=== PATIENT | male | born 1940 | race Caucasian/White ===

== ENCOUNTER 2016-07-23 12:30 | Outpatient (RCR) | payer MEDICARE, BC ==
[~2016-07-23 12:30] MED LIST: ALLOPURINOL300 MG PO; AMARYL 2MG T2 MG/TAB PO; AMARYL4 MG PO; AMLOPIDINE; AMLOPIDINE PO; ANDROGEL1% TP; APRESOLINE PO; ASPI325T6 PO; ASPIR-LOW81 MG PO; ASPIRIN 81M81 MG/TA2 PO; ATENOLOL25 MG PO; ATENOLOL50 MG PO; BENAZEPRIL; BENAZEPRIL PO; BYSTOLIC10 MG PO; CATAPRES 0.1MG0.1 MG PO; CIALIS20 MG PO; CLOPIDOGREL; COUMADIN 6MG6 MG/TAB PO; COUMADIN4 MG PO; FLEXERIL10 MG PO; FLONASE NASAL S16 GM NS; FORTAMET500 MG PO; GENTAMICIN EYE D5 ML OP; HCTZ; HYTRIN 5MG C5 MG/CAP PO; HYZAAR 25 MG-101 TAB PO; K-DUR 10 MEQ T10 MEQ PO; LASIX 20MG TABL20 MG PO; LASIX 40MG TABL40 MG PO; LIPITOR20 MG PO; LODINE400 MG PO; LORTAB 5/500 501 TAB PO; METFORMIN ER500 MG PO; MULTIPLE VITAMI1 TAB PO; NIACOR500 MG PO; NITROSTAT0.4 MG/TAB SL; NORCO 325 MG-7.1 TAB PO; NORVASC 5MG5 MG/TAB PO; OCUVITE1 TA1 PO; PRILOSEC 20MG20 MG PO; ROXICODONE 55 MG/TAB PO; TEKTURNA PO; TERAZOSIN HCL PO; TESTOSTERONE TP; TYLENOL 325MG325 M1 PO; ULTRAM50 MG PO; ZEBETA 5MG5 MG PO; ZOCOR 20MG20 MG PO; ZYLOPRIM 300MG300 MG PO
== END 2016-09-29 | disposition still patient (30) ==
LOC: WSST
DX: J38.3 Other diseases of vocal cords (principal)
CPT/HCPCS: G9171-GN; G9172-GN

== ENCOUNTER 2017-07-08 07:05 | Day surgery (SDC) | payer MEDICARE, BC ==
[2017-07-08] VITALS (8 sets, daily range): BP systolic 116–141; BP diastolic 60–83; PULSE 62–76; TEMP 97.2–97.4
[~2017-07-08] VITALS: Ht 175.4 cm; Wt 88.2 kg
[~2017-07-08 07:05] MED LIST changes: -ANDROGEL1% TP; +ANDROGEL1.62% TOP; +MULTIPLE VITAMI1 TA5 PO; -MULTIPLE VITAMI1 TAB PO
[2017-07-08] MEDS ORDERED: NORVASC 5MG5 MG/TAB PO (07:34)
[2017-07-08 08:08] LABS: BASO % 0.7 % (0.0-2.0); EOS # 0.2 (0.0-0.7); EOS % 3.7 % (0-4.0); GRAN # 3.9 (1.4-6.5); GRAN % 70.9 % (42.2-75.2); HEMATOCRIT 43.8 % (42.0-52.0); HEMOGLOBIN 14.8 g/dl (13.5-18.0); LYMPH % 17.5 % (20.0-51.0); MEAN CELL VOLUME 81 fl (80.0-100.0); MEAN CORPUSCULAR HEMOGLOBIN 27 pg (27.0-31.0); MEAN CORPUSCULAR HGB CONC 34 g/dl (33.0-37.0); MEAN PLATELET VOLUME 9.9 fl (7.4-10.4); MONO # 0.4 (0.1-0.6); MONO % 6.8 % (1.7-9.3); PLATELET COUNT 102 K/mm3 (130-400); RED BLOOD COUNT 5.41 M/mm3 (4.20-5.60); WHITE BLOOD COUNT 5.4 K/mm3 (4.8-10.8)
[2017-07-08 08:09] LABS: INR 2.9 (0.8-3.0); PROTHROMBIN TIME 33.9 SECONDS (9.7-12.8)
[2017-07-08 08:13] LABS: CALCIUM 9.6 mg/dL (8.4-10.2); CREATININE, serum 1.16 mg/dL (0.66-1.25); POTASSIUM 3.9 mmol/L (3.4-5.0)
[2017-07-08] MEDS ORDERED: COREG 25MG25 MG/TAB PO (08:16)
[2017-07-08] MEDS ORDERED: DECADRON OPHTH D5 ML OT (08:18)
[2017-07-08] MEDS ORDERED: COZAAR100 MG PO (08:20)
[2017-07-08] MEDS ORDERED: GLUCOPHAGE XR500 M1 PO (08:21)
[2017-07-08] MEDS ORDERED: SINGULAIR 110 MG/TAB PO (08:22)
[2017-07-08] MEDS ORDERED: FLOMAX 0.40.4 MG/CAP PO (08:29)
[2017-07-08] MEDS ORDERED: THEO-24400 MG PO (08:32)
[2017-07-08] MEDS ORDERED: VITAMIN D31000 I1 PO (08:33)
[2017-07-08] MEDS ORDERED: THE MEDICINE S200 M2 PO (08:34)
== END 2017-07-08 15:26 | disposition home or self-care (01) ==
LOC: COL.CAR 07:05
PROVIDERS: Internal Medicine Cardiovascular Disease
DX: I48.91 Unspecified atrial fibrillation (principal); I25.10 Atherosclerotic heart disease of native coronary artery without angina pectoris; M19.90 Unspecified osteoarthritis, unspecified site; K21.9 Gastro-esophageal reflux disease without esophagitis; I12.9 Hypertensive chronic kidney disease with stage 1 through stage 4 chronic kidney disease, or unspecified chronic kidney disease; E11.22 Type 2 diabetes mellitus with diabetic chronic kidney disease; N18.9 Chronic kidney disease, unspecified; G47.33 Obstructive sleep apnea (adult) (pediatric); Z95.818 Presence of other cardiac implants and grafts; Z95.1 Presence of aortocoronary bypass graft; Z79.84 Long term (current) use of oral hypoglycemic drugs; Z79.01 Long term (current) use of anticoagulants; Z90.49 Acquired absence of other specified parts of digestive tract; Z87.891 Personal history of nicotine dependence; Z85.038 Personal history of other malignant neoplasm of large intestine; Z86.73 Personal history of transient ischemic attack (TIA), and cerebral infarction without residual deficits; Z82.49 Family history of ischemic heart disease and other diseases of the circulatory system; Z83.3 Family history of diabetes mellitus; Z82.3 Family history of stroke
CPT/HCPCS: G9654; J2704; J7030

== ENCOUNTER 2018-01-24 05:58 | Day surgery (SDC) | payer MEDICARE, BC ==
[~2018-01-24] VITALS: Ht 175.3 cm; Wt 93.0 kg
[~2018-01-24 05:58] MED LIST changes: +COREG 25MG25 MG/TAB PO; +COZAAR100 MG PO; +DECADRON OPHTH D5 ML OT; +FLOMAX 0.40.4 MG/CAP PO; +GLUCOPHAGE XR500 M1 PO; +LIPITOR 10MG10 MG PO; -LIPITOR20 MG PO; +SINGULAIR 110 MG/TAB PO; +THE MEDICINE S200 M2 PO; +THEO-24400 MG PO; +VITAMIN D31000 I1 PO
[2018-01-24 06:18] LABS: HEMATOCRIT 41.7 % (42.0-52.0); HEMOGLOBIN 13.8 g/dl (13.5-18.0); MEAN CELL VOLUME 79 fl (80.0-100.0); MEAN CORPUSCULAR HEMOGLOBIN 26 pg (27.0-31.0); MEAN CORPUSCULAR HGB CONC 33 g/dl (33.0-37.0); MEAN PLATELET VOLUME 9.4 fl (7.4-10.4); PLATELET COUNT 123 K/mm3 (130-400); RED BLOOD COUNT 5.27 M/mm3 (4.20-5.60)
[2018-01-24 06:29] LABS: CALCIUM 9.7 mg/dL (8.4-10.2); CREATININE, serum 1.19 mg/dL (0.66-1.25); POTASSIUM 3.8 mmol/L (3.4-5.0)
[2018-01-24 06:32] LABS: PROTHROMBIN TIME 23.1 SECONDS (9.7-12.8)
[2018-01-24 07:07] VITALS: BP 173/82; PULSE 69; TEMP 98.4
[2018-01-24] MEDS ORDERED: TYLENOL 325MG325 MG PO (07:10)
[2018-01-24] MEDS ORDERED: HYTRIN 5MG C5 MG/CAP PO (07:27)
[2018-01-24 08:35] VITALS: BP 128/78; PULSE 70
[2018-01-24 09:00] VITALS: BP 165/86; PULSE 64
[2018-01-24 09:20] VITALS: BP 159/103; PULSE 65
[2018-01-24 09:40] VITALS: BP 183/85; PULSE 67
== END 2018-01-24 10:11 | disposition home or self-care (01) ==
LOC: COL.CAR 05:58
PROVIDERS: Internal Medicine Cardiovascular Disease
DX: I48.0 Paroxysmal atrial fibrillation (principal); I48.91 Unspecified atrial fibrillation; I25.10 Atherosclerotic heart disease of native coronary artery without angina pectoris; E78.5 Hyperlipidemia, unspecified; I10 Essential (primary) hypertension; R01.1 Cardiac murmur, unspecified; Z86.73 Personal history of transient ischemic attack (TIA), and cerebral infarction without residual deficits; Z95.1 Presence of aortocoronary bypass graft; E11.22 Type 2 diabetes mellitus with diabetic chronic kidney disease; I12.9 Hypertensive chronic kidney disease with stage 1 through stage 4 chronic kidney disease, or unspecified chronic kidney disease; N18.9 Chronic kidney disease, unspecified; Z79.84 Long term (current) use of oral hypoglycemic drugs; G47.33 Obstructive sleep apnea (adult) (pediatric); Z85.038 Personal history of other malignant neoplasm of large intestine; Z79.899 Other long term (current) drug therapy; Z79.01 Long term (current) use of anticoagulants; I08.1 Rheumatic disorders of both mitral and tricuspid valves; Z87.891 Personal history of nicotine dependence
CPT/HCPCS: J2704

== ENCOUNTER 2018-03-03 08:22 | Day surgery (SDC) | payer MEDICARE, BC ==
[~2018-03-03] VITALS: Ht 175.4 cm; Wt 94.0 kg
[~2018-03-03 08:22] MED LIST changes: +TYLENOL 325MG325 MG PO
[2018-03-03] MEDS ORDERED: COUMADIN4 MG PO (08:41)
[2018-03-03 08:51] VITALS: BP 166/86; PULSE 74; TEMP 97.8
[2018-03-03 08:54] LABS: HEMATOCRIT 41.5 % (42.0-52.0); HEMOGLOBIN 13.9 g/dl (13.5-18.0); MEAN CELL VOLUME 79 fl (80.0-100.0); MEAN CORPUSCULAR HEMOGLOBIN 26 pg (27.0-31.0); MEAN CORPUSCULAR HGB CONC 34 g/dl (33.0-37.0); MEAN PLATELET VOLUME 9.4 fl (7.4-10.4); PLATELET COUNT 101 K/mm3 (130-400); RED BLOOD COUNT 5.26 M/mm3 (4.20-5.60); REDCELL DISTRIBUTION WIDTH-CV 14.9 % (11.5-14.5)
[2018-03-03 08:57] LABS: INR 2.8 (0.8-3.0); PROTHROMBIN TIME 32.3 SECONDS (9.7-12.8)
[2018-03-03 09:00] LABS: CALCIUM 9.4 mg/dL (8.4-10.2); CREATININE, serum 1.23 mg/dL (0.66-1.25)
[2018-03-03] MEDS ORDERED: PACERONE200 MG PO (10:53)
[2018-03-03 11:10] VITALS: BP 148/93; PULSE 64
[2018-03-03 11:25] VITALS: BP 148/71; PULSE 74
[2018-03-03 11:40] VITALS: BP 143/70; PULSE 70
[2018-03-03 11:55] VITALS: BP 156/82; PULSE 72; TEMP 97.6
== END 2018-03-03 12:28 | disposition home or self-care (01) ==
LOC: COL.CAR 08:22
PROVIDERS: Internal Medicine Cardiovascular Disease
DX: I48.91 Unspecified atrial fibrillation (principal); E10.22 Type 1 diabetes mellitus with diabetic chronic kidney disease; I12.9 Hypertensive chronic kidney disease with stage 1 through stage 4 chronic kidney disease, or unspecified chronic kidney disease; N18.9 Chronic kidney disease, unspecified; Z87.891 Personal history of nicotine dependence; K21.9 Gastro-esophageal reflux disease without esophagitis; E10.9 Type 1 diabetes mellitus without complications; Z79.84 Long term (current) use of oral hypoglycemic drugs; Z86.73 Personal history of transient ischemic attack (TIA), and cerebral infarction without residual deficits; I25.10 Atherosclerotic heart disease of native coronary artery without angina pectoris; E78.5 Hyperlipidemia, unspecified; R01.1 Cardiac murmur, unspecified; Z95.1 Presence of aortocoronary bypass graft; G47.33 Obstructive sleep apnea (adult) (pediatric); I34.0 Nonrheumatic mitral (valve) insufficiency; Z82.49 Family history of ischemic heart disease and other diseases of the circulatory system; Z82.3 Family history of stroke; N52.1 Erectile dysfunction due to diseases classified elsewhere; I77.1 Stricture of artery; Z79.01 Long term (current) use of anticoagulants
CPT/HCPCS: J2704; J7030

== ENCOUNTER 2018-06-29 07:31 | Emergency (ER) | payer MEDICARE, BC ==
[~2018-06-29] VITALS: Ht 175.3 cm; Wt 97.7 kg
[~2018-06-29 07:31] MED LIST changes: +PACERONE200 MG PO
[2018-06-29 07:34] VITALS: TEMP 97.8
[2018-06-29 08:07] LABS: BASO % 0.5 % (0.0-2.0); EOS # 0.2 (0.0-0.7); EOS % 2.8 % (0-4.0); GRAN # 4.5 (1.4-6.5); GRAN % 78.3 % (42.2-75.2); LYMPH # 0.6 (1.2-3.4); LYMPH % 10.4 % (20.0-51.0); MEAN CELL VOLUME 85 fl (80.0-100.0); MEAN CORPUSCULAR HEMOGLOBIN 28 pg (27.0-31.0); MEAN CORPUSCULAR HGB CONC 33 g/dl (33.0-37.0); MEAN PLATELET VOLUME 8.8 fl (7.4-10.4); MONO # 0.4 (0.1-0.6); MONO % 7.1 % (1.7-9.3); PLATELET COUNT 152 K/mm3 (130-400); RED BLOOD COUNT 3.98 M/mm3 (4.20-5.60); REDCELL DISTRIBUTION WIDTH-CV 15.5 % (11.5-14.5)
[2018-06-29 08:12] LABS: HEMATOCRIT 33.8 % (42.0-52.0)
[2018-06-29 08:19] LABS: ALBUMIN 3.4 gm/dL (3.5-5.0); C-REACTIVE PROTEIN 4.5 mg/dL (0.0-0.9); CALCIUM 8.6 mg/dL (8.4-10.2); CREATININE, serum 1.45 mg/dL (0.66-1.25); TOTAL PROTEIN 6.6 gm/dL (6.4-8.2)
[2018-06-29 08:20] LABS: PROTHROMBIN TIME 34.1 SECONDS (9.7-12.8)
[2018-06-29 08:34] LABS: ERYTHROCYTE SEDIMENTATION RATE 52 mm/hr (0-30)
[2018-06-29] MEDS ORDERED: CEPHALEXIN500 M1 PO (08:56)
[2018-06-29] MEDS ORDERED: DOXYCYCLINE 10100 MG PO (08:56)
[2018-06-29 09:31] VITALS: BP 178/98; PULSE 75
== END 2018-06-29 09:32 | disposition home or self-care (01) ==
LOC: COL.ER 07:31
PROVIDERS: Emergency Medicine
DX: L03.116 Cellulitis of left lower limb (principal); I48.91 Unspecified atrial fibrillation; I25.10 Atherosclerotic heart disease of native coronary artery without angina pectoris; E11.9 Type 2 diabetes mellitus without complications; Z86.73 Personal history of transient ischemic attack (TIA), and cerebral infarction without residual deficits; Z98.890 Other specified postprocedural states; Z79.84 Long term (current) use of oral hypoglycemic drugs

== ENCOUNTER 2019-03-12 07:43 | Emergency (ER) | payer MEDICARE, BC ==
[~2019-03-12] VITALS: Ht 167.6 cm; Wt 85.9 kg
[~2019-03-12 07:43] MED LIST changes: +AMOXICILLIN 8751 TAB PO; +APRESOLINE 25MG25 MG PO; +BENICAR40 MG PO; +BUMEX2 MG PO; +CEPHALEXIN500 M1 PO; +COREG12.5 MG PO; +COUMADIN 1MG1 MG/TAB PO; +COUMADIN 22.5 MG/TAB PO; +DOXYCYCLINE 10100 MG PO; +GLUCOPHAGE500 MG/TAB PO; +NORVASC 10MG10 MG PO; +PRIL40 PO; -PRILOSEC 20MG20 MG PO; +REFRESH TEARS 330 ML OP; +RESTASIS 60VL OP
[2019-03-12] MEDS ORDERED: PROAIR HFA0.09 MG/AC INH (07:56)
[2019-03-12] MEDS ORDERED: NORVASC 10MG10 MG PO (07:57)
[2019-03-12] MEDS ORDERED: CORDARONE200 MG/TAB PO (07:57)
[2019-03-12] MEDS ORDERED: LIPITOR 10MG10 MG PO (07:58)
[2019-03-12] MEDS ORDERED: ASPIRIN 81M81 MG/TA2 PO (07:58)
[2019-03-12] MEDS ORDERED: COUMADIN 1MG1 MG/TAB PO (08:05)
[2019-03-12 08:37] LABS: BASO % 0.6 % (0.0-2.0); EOS # 0.1 (0.0-0.7); GRAN # 4.3 (1.4-6.5); GRAN % 80.6 % (42.2-75.2); HEMATOCRIT 37.9 % (42.0-52.0); HEMOGLOBIN 11.9 g/dl (13.5-18.0); LYMPH # 0.4 (1.2-3.4); LYMPH % 8.2 % (20.0-51.0); MEAN CELL VOLUME 83 fl (80.0-100.0); MEAN CORPUSCULAR HEMOGLOBIN 26 pg (27.0-31.0); MEAN CORPUSCULAR HGB CONC 31 g/dl (33.0-37.0); MEAN PLATELET VOLUME 9.9 fl (7.4-10.4); MONO # 0.5 (0.1-0.6); MONO % 8.4 % (1.7-9.3); PLATELET COUNT 107 K/mm3 (130-400); RED BLOOD COUNT 4.58 M/mm3 (4.20-5.60); REDCELL DISTRIBUTION WIDTH-CV 15.6 % (11.5-14.5)
[2019-03-12 08:49] LABS: ALBUMIN 3.6 gm/dL (3.5-5.0); BILIRUBIN,TOTAL 0.6 mg/dL (0.0-1.0); C-REACTIVE PROTEIN 6.5 mg/dL (0.0-0.9); CALCIUM 9.1 mg/dL (8.4-10.2); CREATININE, serum 2.05 (0.66-1.25); POTASSIUM 3.8 mmol/L (3.4-5.0); TOTAL PROTEIN 6.7 gm/dL (6.4-8.2); URIC ACID 11.5 mg/dL (3.5-8.5)
[2019-03-12 09:05] LABS: INR 2.4 (0.8-3.0)
[2019-03-12] MEDS ORDERED: PREDNISONE20 MG PO (10:20)
[2019-03-12 12:25] LABS: TROPONIN-I 0.014 ng/mL (0.000-0.035)
[2019-03-12 12:48] VITALS: BP 130/60; PULSE 55; TEMP 98.6
[2019-03-12] MEDS ORDERED: NORCO 325 MG-51 TAB PO (12:54)
== END 2019-03-12 12:53 | disposition home or self-care (01) ==
LOC: COL.ER 07:43
PROVIDERS: Nurse Practitioner Primary Care
DX: M10.9 Gout, unspecified (principal); I48.91 Unspecified atrial fibrillation; E11.22 Type 2 diabetes mellitus with diabetic chronic kidney disease; I12.9 Hypertensive chronic kidney disease with stage 1 through stage 4 chronic kidney disease, or unspecified chronic kidney disease; N18.3 Chronic kidney disease, stage 3 (moderate); Z79.82 Long term (current) use of aspirin; Z79.01 Long term (current) use of anticoagulants; Z87.891 Personal history of nicotine dependence; Z95.5 Presence of coronary angioplasty implant and graft
CPT/HCPCS: C9113; J2270; J7512

== ENCOUNTER → 2019-04-27 | Outpatient (CLI) | payer MEDICARE, BC ==
[~2019-04-27] MED LIST changes: +CORDARONE200 MG/TAB PO; +NORCO 325 MG-51 TAB PO; +PREDNISONE20 MG PO; +PROAIR HFA0.09 MG/AC INH
== END ==
LOC: COL.RAD 13:42
DX: I65.29 Occlusion and stenosis of unspecified carotid artery (principal); I63.9 Cerebral infarction, unspecified

== ENCOUNTER 2019-08-02 20:08 | Emergency (ER) | payer MEDICARE, BC ==
[~2019-08-02] VITALS: Ht 172.7 cm; Wt 94.1 kg
[2019-08-02 20:10] VITALS: TEMP 96.9
[2019-08-02 20:58] LABS: BASO % 0.6 % (0.0-2.0); EOS % 0.2 % (0-4.0); GRAN # 4.6 (1.4-6.5); GRAN % 92.8 % (42.2-75.2); HEMOGLOBIN 10.3 g/dl (13.5-18.0); LYMPH # 0.2 (1.2-3.4); LYMPH % 3.8 % (20.0-51.0); MEAN CELL VOLUME 85 fl (80.0-100.0); MEAN CORPUSCULAR HEMOGLOBIN 26 pg (27.0-31.0); MEAN CORPUSCULAR HGB CONC 31 g/dl (33.0-37.0); MEAN PLATELET VOLUME 10.1 fl (7.4-10.4); MONO # 0.1 (0.1-0.6); MONO % 2.2 % (1.7-9.3); PLATELET COUNT 130 K/mm3 (130-400); RED BLOOD COUNT 3.91 M/mm3 (4.20-5.60); REDCELL DISTRIBUTION WIDTH-CV 16.1 % (11.5-14.5)
[2019-08-02 21:10] LABS: HEMATOCRIT 33.1 % (42.0-52.0)
[2019-08-02 21:13] LABS: ALANINE AMINOTRANSFERASE 23 U/L (21-72); ALBUMIN 4.2 gm/dL (3.5-5.0); ALKALINE PHOSPHATASE 81 U/L (50-136); ANION GAP 14 mmol/L (7-16); AST,SGOT 22 U/L (15-37); BLOOD UREA NITROGEN 66 mg/dL (9-20); CALCIUM 9.4 mg/dL (8.4-10.2); CARBON DIOXIDE 24 mmol/L (22-30); CHLORIDE 100 mmol/L (98-107); CREATININE, serum 3.33 (0.66-1.25); GLUCOSE 187 mg/dL (74-106); LIPASE 37 U/L (23-300); POTASSIUM 4.5 mmol/L (3.4-5.0); SODIUM 138 mmol/L (137-145); TOTAL PROTEIN 7.3 gm/dL (6.4-8.2)
[2019-08-02] MEDS ORDERED: ZYLOPRIM 300MG300 MG PO (21:23)
[2019-08-02] MEDS ORDERED: SYNTHROID0.05 MG/TA PO (21:25)
[2019-08-02] MEDS ORDERED: PRINIVIL5 MG PO (21:28)
[2019-08-02] MEDS ORDERED: MIRALAX PA17 GM/Dose PO (21:33)
[2019-08-02 21:34] LABS: TROPONIN-I < 0.012 ng/mL (0.000-0.035)
[2019-08-02 22:41] LABS: INR 1.7 (0.8-3.0); PROTHROMBIN TIME 20.7 SECONDS (9.7-12.8)
[2019-08-03 00:47] LABS: MUCOUS Present /lpf; PH 5 (5-8); SQUAMOUS EPITHELIAL 0-2 /hpf; URINE APPEARANCE Clear; URINE BACTERIA None Seen /hpf; URINE BILIRUBIN Negative (NEGATIVE); URINE BLOOD Negative (NEGATIVE); URINE COLOR Yellow; URINE GLUCOSE Negative (NEGATIVE); URINE KETONE Negative (NEGATIVE); URINE LEUKOCYTE ESTERASE Negative (NEGATIVE); URINE NITRATE Negative (NEGATIVE); URINE PROTEIN(semi-quant) 2+ (NEGATIVE); URINE RBC 0-2 /hpf; URINE UROBILINOGEN Negative (NEGATIVE); URINE WBC None Seen /hpf
[2019-08-03 01:14] LABS: COLLECTION METHOD CLEAN CATCH
[2019-08-03 01:45] VITALS: BP 163/61; PULSE 59
== END 2019-08-03 01:47 | disposition home or self-care (01) ==
LOC: COL.ER 20:08
PROVIDERS: Emergency Medicine
DX: R11.2 Nausea with vomiting, unspecified (principal); E11.22 Type 2 diabetes mellitus with diabetic chronic kidney disease; I12.9 Hypertensive chronic kidney disease with stage 1 through stage 4 chronic kidney disease, or unspecified chronic kidney disease; N18.9 Chronic kidney disease, unspecified; I48.91 Unspecified atrial fibrillation; M10.9 Gout, unspecified; Z85.038 Personal history of other malignant neoplasm of large intestine; Z90.89 Acquired absence of other organs; Z87.891 Personal history of nicotine dependence; Z79.01 Long term (current) use of anticoagulants; Z79.82 Long term (current) use of aspirin; Z79.51 Long term (current) use of inhaled steroids
CPT/HCPCS: J7030

== ENCOUNTER → 2019-08-21 | Outpatient (CLI) | payer MEDICARE, BC ==
[~2019-08-21] MED LIST changes: +APRESOLINE50 MG PO; +CELEBREX 200MG200 MG PO; +COLCRYS0.6 MG PO; +MIRALAX PA17 GM/Dose PO; +PRINIVIL5 MG PO; +SYNTHROID0.05 MG/TA PO; +ULTRAM 50MG TAB50 MG PO
== END ==
LOC: COL.VAS 11:12
DX: M79.89 Other specified soft tissue disorders (principal); Z96.651 Presence of right artificial knee joint

== ENCOUNTER 2019-09-02 08:35 | Emergency (ER) | payer MEDICARE, BC ==
[~2019-09-02] VITALS: Ht 170.2 cm; Wt 105.9 kg
[2019-09-02 08:39] VITALS: TEMP 97.8
[2019-09-02 09:19] LABS: BASO % 0.5 % (0.0-2.0); EOS # 0.1 (0.0-0.7); EOS % 1.9 % (0-4.0); GRAN % 87.3 % (42.2-75.2); LYMPH # 0.3 (1.2-3.4); LYMPH % 4.8 % (20.0-51.0); MEAN CELL VOLUME 83 fl (80.0-100.0); MEAN CORPUSCULAR HGB CONC 29 g/dl (33.0-37.0); MEAN PLATELET VOLUME 10.4 fl (7.4-10.4); MONO # 0.3 (0.1-0.6); MONO % 5.1 % (1.7-9.3); PLATELET COUNT 156 K/mm3 (130-400); RED BLOOD COUNT 3.37 M/mm3 (4.20-5.60); REDCELL DISTRIBUTION WIDTH-CV 16.8 % (11.5-14.5)
[2019-09-02 09:24] LABS: HEMATOCRIT 27.9 % (42.0-52.0); HEMOGLOBIN 8.2 g/dl (13.5-18.0); MEAN CORPUSCULAR HEMOGLOBIN 24 pg (27.0-31.0)
[2019-09-02 09:42] LABS: INR 9.8 (0.8-3.0); PROTHROMBIN TIME 123.1 SECONDS (9.7-12.8)
[2019-09-02 10:24] VITALS: BP 167/97; PULSE 65
== END 2019-09-02 10:27 | disposition home or self-care (01) ==
LOC: COL.ER 08:35
PROVIDERS: Nurse Practitioner
DX: R04.0 Epistaxis (principal); R79.1 Abnormal coagulation profile; Z98.890 Other specified postprocedural states; Z87.891 Personal history of nicotine dependence; Z85.038 Personal history of other malignant neoplasm of large intestine; Z79.82 Long term (current) use of aspirin; Z79.51 Long term (current) use of inhaled steroids; Z79.01 Long term (current) use of anticoagulants

== ENCOUNTER 2020-07-26 07:25 | Day surgery (SDC) | payer MEDICARE, BC ==
[~2020-07-26] VITALS: Ht 170.2 cm; Wt 92.2 kg
[~2020-07-26 07:25] MED LIST changes: +COUMADIN 2MG2 MG/TAB PO
[2020-07-26] MEDS ORDERED: NORVASC 5MG5 MG/TAB PO (08:39)
[2020-07-26] MEDS ORDERED: BUMEX2 MG PO (08:41)
[2020-07-26] MEDS ORDERED: COLCRYS0.6 MG PO (08:48)
[2020-07-26] MEDS ORDERED: SYNTHROID0.1 MG/TAB PO (08:50)
[2020-07-26] MEDS ORDERED: ZESTRIL 5MG5 MG PO (08:51)
[2020-07-26] MEDS ORDERED: COUMADIN 2MG2 MG/TAB PO (08:56)
[2020-07-26 09:03] LABS: INR 1.8 (0.8-3.0)
[2020-07-26 09:03] LABS: BASO % 0.6 % (0.0-2.0); EOS # 0.2 (0.0-0.7); EOS % 2.8 % (0-4.0); GRAN # 5.1 (1.4-6.5); HEMOGLOBIN 11.2 g/dl (13.5-18.0); LYMPH # 0.7 (1.2-3.4); LYMPH % 10.3 % (20.0-51.0); MEAN CELL VOLUME 87 fl (80.0-100.0); MEAN CORPUSCULAR HEMOGLOBIN 27 pg (27.0-31.0); MEAN CORPUSCULAR HGB CONC 31 g/dl (33.0-37.0); MEAN PLATELET VOLUME 11.5 fl (7.4-10.4); MONO # 0.5 (0.1-0.6); MONO % 7.7 % (1.7-9.3); PLATELET COUNT 122 K/mm3 (130-400); RED BLOOD COUNT 4.13 M/mm3 (4.20-5.60); REDCELL DISTRIBUTION WIDTH-CV 16.3 % (11.5-14.5)
[2020-07-26 09:05] LABS: PARTIAL THROMBOPLASTIN TIME 34.9 SECONDS (26.0-37.0)
[2020-07-26 09:08] LABS: CREATININE, serum 2.06 (0.66-1.25); MAGNESIUM 2.2 mg/dL (1.6-2.3); POTASSIUM 4.1 mmol/L (3.4-5.0)
[2020-07-26 09:20] VITALS: BP 140/54; PULSE 46
[2020-07-26 09:30] VITALS: BP 141/58; PULSE 48
[2020-07-26 09:32] LABS: HEMATOCRIT 36.1 % (42.0-52.0)
[2020-07-26 09:38] LABS: THYROID STIMULATING HORMONE 7.14 uIU/mL (0.465-4.680)
--- NOTE | 2020-07-26 09:40 | NUR ---
Report from Regan Muir.Pt observed awake and alert.Dr Dominguez in to visit pt.
[2020-07-26] MEDS ORDERED: NORVASC 10MG10 MG PO (09:44)
[2020-07-26 09:45] VITALS: BP 154/59; PULSE 51
[2020-07-26] MEDS ORDERED: COREG 6.256.25 MG/TA PO (09:45)
[2020-07-26 10:00] VITALS: BP 166/66; PULSE 50
--- NOTE | 2020-07-26 10:28 | NUR ---
Discharge instructions given to pt.Pt verbalizes understanding.INT removed,catheter tip intact.Pt escorted out via wheelchair by this nurse.
== END 2020-07-26 10:42 | disposition home or self-care (01) ==
LOC: COL.CAR 07:25
PROVIDERS: Internal Medicine Cardiovascular Disease
DX: I48.0 Paroxysmal atrial fibrillation (principal); I25.10 Atherosclerotic heart disease of native coronary artery without angina pectoris; E11.22 Type 2 diabetes mellitus with diabetic chronic kidney disease; I12.9 Hypertensive chronic kidney disease with stage 1 through stage 4 chronic kidney disease, or unspecified chronic kidney disease; N18.4 Chronic kidney disease, stage 4 (severe); K21.9 Gastro-esophageal reflux disease without esophagitis; E78.5 Hyperlipidemia, unspecified; G47.33 Obstructive sleep apnea (adult) (pediatric); D63.1 Anemia in chronic kidney disease; M19.90 Unspecified osteoarthritis, unspecified site; Z95.1 Presence of aortocoronary bypass graft; Z88.3 Allergy status to other anti-infective agents; Z88.6 Allergy status to analgesic agent; Z88.8 Allergy status to other drugs, medicaments and biological substances; Z90.49 Acquired absence of other specified parts of digestive tract; Z87.891 Personal history of nicotine dependence; Z85.038 Personal history of other malignant neoplasm of large intestine; Z86.73 Personal history of transient ischemic attack (TIA), and cerebral infarction without residual deficits
CPT/HCPCS: J2704; J7030

== ENCOUNTER 2020-11-15 10:29 | Emergency (ER) | payer MEDICARE, BC ==
[~2020-11-15] VITALS: Ht 170.2 cm; Wt 90.9 kg
[~2020-11-15 10:29] MED LIST changes: +COREG 6.256.25 MG/TA PO; +SYNTHROID0.1 MG/TAB PO; +ZESTRIL 5MG5 MG PO
[2020-11-15 10:46] VITALS: TEMP 98.3
[2020-11-15 11:30] VITALS: BP 112/68; PULSE 90
== END 2020-11-15 11:30 | disposition home or self-care (01) ==
LOC: COL.ER 10:29
DX: I95.9 Hypotension, unspecified (principal); I10 Essential (primary) hypertension; I48.91 Unspecified atrial fibrillation; Z86.73 Personal history of transient ischemic attack (TIA), and cerebral infarction without residual deficits; Z95.9 Presence of cardiac and vascular implant and graft, unspecified; Z79.01 Long term (current) use of anticoagulants; Z88.6 Allergy status to analgesic agent; Z87.891 Personal history of nicotine dependence

== ENCOUNTER 2020-11-22 06:17 | Inpatient (IN) | payer MEDICARE, BC ==
[~2020-11-22] VITALS: Ht 170.2 cm; Wt 88.4 kg
[2020-11-22 07:03] LABS: BASO % 0.7 % (0.0-2.0); EOS # 0.1 (0.0-0.7); EOS % 3.3 % (0-4.0); GRAN # 3.5 (1.4-6.5); GRAN % 82.2 % (42.2-75.2); HEMOGLOBIN 10.1 g/dl (13.5-18.0); LYMPH # 0.3 (1.2-3.4); LYMPH % 6.4 % (20.0-51.0); MEAN CELL VOLUME 81 fl (80.0-100.0); MEAN CORPUSCULAR HEMOGLOBIN 26 pg (27.0-31.0); MEAN CORPUSCULAR HGB CONC 32 g/dl (33.0-37.0); MEAN PLATELET VOLUME 10.5 fl (7.4-10.4); MONO # 0.3 (0.1-0.6); MONO % 6.9 % (1.7-9.3); PLATELET COUNT 154 K/mm3 (130-400)
[2020-11-22 07:05] LABS: HEMATOCRIT 31.7 % (42.0-52.0)
[2020-11-22 07:09] LABS: INR 3.3 (0.8-3.0); PROTHROMBIN TIME 37.5 SECONDS (9.7-12.8)
[2020-11-22 07:14] LABS: BILIRUBIN,TOTAL 0.5 mg/dL (0.0-1.0); CREATININE, serum 9.92 (0.66-1.25); TOTAL PROTEIN 7.3 gm/dL (6.4-8.2)
[2020-11-22 07:16] LABS: POTASSIUM 4.1 mmol/L (3.4-5.0)
[2020-11-22 07:27] LABS: TROPONIN-I 0.183 ng/mL (0.000-0.035)
[2020-11-22 08:45] LABS: COLLECTION METHOD CLEAN CATCH
[2020-11-22 09:15] LABS: MUCOUS Present /lpf; PH 5 (5-8); SQUAMOUS EPITHELIAL None Seen /hpf; URINE APPEARANCE Cloudy; URINE BACTERIA Occasional /hpf; URINE BILIRUBIN Negative (NEGATIVE); URINE BLOOD Negative (NEGATIVE); URINE COLOR Yellow; URINE GLUCOSE Negative (NEGATIVE); URINE KETONE Negative (NEGATIVE); URINE LEUKOCYTE ESTERASE Negative (NEGATIVE); URINE NITRATE Negative (NEGATIVE); URINE PROTEIN(semi-quant) 1+ (NEGATIVE); URINE RBC 0-2 /hpf; URINE UROBILINOGEN Negative (NEGATIVE)
[2020-11-22] MEDS ORDERED: TESSALON P100 MG/CAP PO (12:11)
[2020-11-22] MEDS ORDERED: IMDUR 60MG60 MG/TAB PO (12:12)
[2020-11-22] MEDS ORDERED: THE MEDICINE SH1 POW PO (13:57)
[2020-11-22] MEDS ORDERED: PRINIVIL10 MG PO (13:59)
[2020-11-22] MEDS ORDERED: MINOXIDIL 2.5 PO (14:00)
[2020-11-22] MEDS ORDERED: ONE-A-DAY ESSE1 EACH PO (14:02)
[2020-11-22] MEDS ORDERED: PRILOSEC 20MG20 MG PO (14:03)
[2020-11-22 14:23] VITALS: BP 130/40; PULSE 66; TEMP 98.1
[2020-11-22 16:27] VITALS: BP 133/40; PULSE 58; TEMP 98.1
[2020-11-22 17:35] LABS: BASO % 0.7 % (0.0-2.0); EOS # 0.2 (0.0-0.7); EOS % 4.8 % (0-4.0); GRAN # 3.2 (1.4-6.5); LYMPH # 0.4 (1.2-3.4); LYMPH % 8.9 % (20.0-51.0); MEAN CELL VOLUME 82 fl (80.0-100.0); MEAN CORPUSCULAR HGB CONC 31 g/dl (33.0-37.0); MEAN PLATELET VOLUME 10.2 fl (7.4-10.4); MONO # 0.4 (0.1-0.6); MONO % 9.4 % (1.7-9.3); PLATELET COUNT 141 K/mm3 (130-400); RED BLOOD COUNT 3.72 M/mm3 (4.20-5.60); REDCELL DISTRIBUTION WIDTH-CV 17.1 % (11.5-14.5)
[2020-11-22 17:39] LABS: ALBUMIN 3.8 gm/dL (3.5-5.0); CALCIUM 8.4 mg/dL (8.4-10.2); CREATININE, serum 9.52 (0.66-1.25); PHOSPHOROUS 7.2 mg/dL (2.5-4.5); POTASSIUM 4.1 mmol/L (3.4-5.0)
[2020-11-22 17:40] LABS: HEMATOCRIT 30.6 % (42.0-52.0); HEMOGLOBIN 9.6 g/dl (13.5-18.0); MEAN CORPUSCULAR HEMOGLOBIN 26 pg (27.0-31.0)
--- NOTE | 2020-11-22 18:48 | NUR ---
Pt rested well after arriving to the floor. Breathing even and unlabored currently on RA. Pt continues to report pain to L shoulder despite pain medications. Denies any N/V. L arm in restriction as well as under a fluid restriction. SCD's in place. Garcia DD with clear yellow urine. POC discussed with patient. Fall precautions in place. Call light within reach.
--- NOTE | 2020-11-22 20:00 | NUR ---
Assessment complete. Patient is breathing well on RA. She complains of mild pain in left elbow/shoulder but states he can wait until next pain medicine is due. He is alert and oriented. Bilateral lower extremity edema is present with no pitting. Left elbow laceration from fall at home is ANTONIA with no drainage. IV fluids infusing into left forearm IV; KARLY does have restriction, physician aware and ok with IV placement at this time. Call light in reach, will continue to monitor.
[2020-11-22 20:32] VITALS: BP 167/51; PULSE 60; TEMP 97.4
--- NOTE | 2020-11-22 22:17 | NUR ---
BP 162/59 at this time; PRN apresoline 25 mg PO administered per order. Patient complains of pain in left shoulder and 500 mg Extra strength Tylenol is adminstered. Will continue to monitor.
[2020-11-23] VITALS (7 sets, daily range): BP systolic 138–169; BP diastolic 42–79; PULSE 55–59; TEMP 97.4–98
--- NOTE | 2020-11-23 09:34 | NUR ---
Pt assessment complete. Pt is sitting up in bed upon entry, he is A/O x4. Her breathing is even and unlabored on RA. Pt denies SOB. Continues to report L shoulder pain, denies ice, heat or medications helping. He is requesting a lidocaine patch. This is his main concern today. Denies any N/V or dizziness. Jose DD, clear yellow urine. Pt denies any further needs. Call light within reach.
--- NOTE | 2020-11-23 10:51 | NUR ---
First visit from the turning machine operator helper. No needs right now.
--- NOTE | 2020-11-23 11:30 | NUR ---
BHARATI met with patient and to conduct intake evaluation. Patient lives at home with his Riana (P# [phone]) in [place]. Riana is patient's DPOA-HC. Records are on file. Patient is normally indepdent at home, uses a cane and walker for mobility, and has a CPAP he [facility]. Patient reports problems with the CPAP functioning. Patient was advised to contact [facility] for further guidance. Patient's PCP is Dr. Maura Fuentes, and he uses [facility] in [place] for medications. Patient denies concerns affording medications. Patient plans to return home with his at discharge. Riana confirms that she will provide transportation. Patient is still in continued pain, and medical staff are addressing them presently. Patient's requested home health service list and was provided with a list of service providers in her area. Please follow up with Home Health choices 11/24. Social work will continue to follow.
--- NOTE | 2020-11-23 11:43 | NUR ---
Pt sitting in pain, tears coming from eyes. Reporting the left shoulder pain is worsened. Lidocaine patch placed. Will reasses.
[2020-11-23 16:07] LABS: INR 2.6 (0.8-3.0); PROTHROMBIN TIME 29.5 SECONDS (9.7-12.8)
--- NOTE | 2020-11-23 18:13 | NUR ---
Pt continued to report L shoulder pain, states the Lidocaine patch has helped. Jose FITZGERALD. Pt asking about dialysis and fluid restriction, educated on this. Up in the chair at this time. Call light within reach.
[2020-11-23 19:19] LABS: IRON,SERUM 18 ug/dL (35-150)
[2020-11-23 19:28] LABS: TOTAL IRON BINDING CAPACITY 245 ug/dL (261-462)
[2020-11-24 04:19] VITALS: BP 154/44; PULSE 60; TEMP 97.7
[2020-11-24 06:37] LABS: BASO % 0.3 % (0.0-2.0); EOS # 0.2 (0.0-0.7); EOS % 3.5 % (0-4.0); GRAN # 4.7 (1.4-6.5); GRAN % 82.5 % (42.2-75.2); LYMPH # 0.4 (1.2-3.4); LYMPH % 6.6 % (20.0-51.0); MEAN CELL VOLUME 83 fl (80.0-100.0); MEAN CORPUSCULAR HGB CONC 32 g/dl (33.0-37.0); MEAN PLATELET VOLUME 11.3 fl (7.4-10.4); MONO # 0.4 (0.1-0.6); MONO % 6.8 % (1.7-9.3); PLATELET COUNT 151 K/mm3 (130-400); RED BLOOD COUNT 3.67 M/mm3 (4.20-5.60)
[2020-11-24 06:46] LABS: HEMATOCRIT 30.4 % (42.0-52.0); HEMOGLOBIN 9.6 g/dl (13.5-18.0); MEAN CORPUSCULAR HEMOGLOBIN 26 pg (27.0-31.0)
[2020-11-24 06:51] LABS: ALBUMIN 3.7 gm/dL (3.5-5.0); CALCIUM 8.8 mg/dL (8.4-10.2); CREATININE, serum 7.84 (0.66-1.25); POTASSIUM 3.8 mmol/L (3.4-5.0)
[2020-11-24 07:53] VITALS: BP 127/66; PULSE 68; TEMP 97.6
--- NOTE | 2020-11-24 09:41 | NUR ---
Pt assessment complete. Pt has a student nurse caring for him today. Pt is A/O x4. His breathing is even and unlabored on RA. Pt denies SOB. No N/V. L shoulder pain present, lidocaine patch placed. Continues to have pain. Betancur DD, yellow urine. Pt reports feeling his bladder is full and "crampy". Bladder scanned revealed little to no urine, no kinks in betancur. POC discussed with patient. Call light within reach.
[2020-11-24] MEDS ORDERED: BUMEX2 MG PO (12:48)
[2020-11-24] MEDS ORDERED: NORCO 325 MG-51 TAB PO (12:48)
[2020-11-24] MEDS ORDERED: BLUE-EMU LIDOC1 EACH TP (12:49)
[2020-11-24] MEDS ORDERED: PRINIVIL10 MG PO (12:50)
[2020-11-24 14:11] VITALS: BP 152/44; PULSE 62
[2020-11-24 15:05] VITALS: BP 152/49; PULSE 62; TEMP 97.6
--- NOTE | 2020-11-24 15:30 | NUR ---
Discharge paperwork and instructions reviewed with the patient and his . All questions answered at this time. Student nurse Opal went over education with them. IV to LFA dc'd catheter tip intact. Pt wheeled out of facility at this time.
== END 2020-11-24 15:45 | disposition home or self-care (01) | DRG 683 ==
LOC: COL.ER 06:17 → MEDICAL 08:21
PROVIDERS: Emergency Medicine; ADMIT Internal Medicine Nephrology
DX: N17.9 Acute kidney failure, unspecified (principal); E87.2 Acidosis; N18.31 Chronic kidney disease, stage 3a; D63.1 Anemia in chronic kidney disease; I48.91 Unspecified atrial fibrillation; I12.9 Hypertensive chronic kidney disease with stage 1 through stage 4 chronic kidney disease, or unspecified chronic kidney disease; M25.512 Pain in left shoulder; E78.5 Hyperlipidemia, unspecified; I25.10 Atherosclerotic heart disease of native coronary artery without angina pectoris; E11.22 Type 2 diabetes mellitus with diabetic chronic kidney disease; N40.0 Benign prostatic hyperplasia without lower urinary tract symptoms; K21.9 Gastro-esophageal reflux disease without esophagitis; G47.30 Sleep apnea, unspecified; Z79.01 Long term (current) use of anticoagulants; Z95.1 Presence of aortocoronary bypass graft; Z86.73 Personal history of transient ischemic attack (TIA), and cerebral infarction without residual deficits; Z88.8 Allergy status to other drugs, medicaments and biological substances; Z88.6 Allergy status to analgesic agent; Z95.5 Presence of coronary angioplasty implant and graft; Z96.653 Presence of artificial knee joint, bilateral; Z87.891 Personal history of nicotine dependence
CPT/HCPCS: J2916

== ENCOUNTER 2020-11-29 18:16 | Emergency (ER) | payer MEDICARE, BC ==
[~2020-11-29] VITALS: Ht 170.2 cm; Wt 87.3 kg
[~2020-11-29 18:16] MED LIST changes: +BLUE-EMU LIDOC1 EACH TP; +IMDUR 60MG60 MG/TAB PO; +MINOXIDIL 2.5 PO; +ONE-A-DAY ESSE1 EACH PO; +PRILOSEC 20MG20 MG PO; +PRINIVIL10 MG PO; +TESSALON P100 MG/CAP PO; +THE MEDICINE SH1 POW PO
[2020-11-29 18:28] VITALS: TEMP 98.5
[2020-11-29 19:11] LABS: COLLECTION METHOD CLEAN CATCH
[2020-11-29 19:20] LABS: MUCOUS Present /lpf; PH 5 (5-8); SQUAMOUS EPITHELIAL 0-2 /hpf; URINE APPEARANCE Clear; URINE BACTERIA None Seen /hpf; URINE BILIRUBIN Negative (NEGATIVE); URINE BLOOD 1+ (NEGATIVE); URINE COLOR Yellow; URINE GLUCOSE Negative (NEGATIVE); URINE KETONE Negative (NEGATIVE); URINE LEUKOCYTE ESTERASE Negative (NEGATIVE); URINE NITRATE Negative (NEGATIVE); URINE PROTEIN(semi-quant) 2+ (NEGATIVE); URINE RBC 0-2 /hpf; URINE UROBILINOGEN Negative (NEGATIVE)
[2020-11-29 19:34] LABS: HEMOGLOBIN 10.2 g/dl (13.5-18.0); MEAN CELL VOLUME 85 fl (80.0-100.0); MEAN CORPUSCULAR HEMOGLOBIN 26 pg (27.0-31.0); MEAN CORPUSCULAR HGB CONC 30 g/dl (33.0-37.0); MEAN PLATELET VOLUME 11.6 fl (7.4-10.4); PLATELET COUNT 151 K/mm3 (130-400); RED BLOOD COUNT 3.97 M/mm3 (4.20-5.60); REDCELL DISTRIBUTION WIDTH-CV 17.4 % (11.5-14.5)
[2020-11-29 19:36] LABS: HEMATOCRIT 33.9 % (42.0-52.0)
[2020-11-29 19:41] LABS: INR 2.1 (0.8-3.0); PROTHROMBIN TIME 23.6 SECONDS (9.7-12.8)
[2020-11-29 19:47] LABS: ALBUMIN 4.4 gm/dL (3.5-5.0); BILIRUBIN,TOTAL 0.5 mg/dL (0.0-1.0); C-REACTIVE PROTEIN 6.9 mg/dL (0.0-0.9); CREATININE, serum 3.63 (0.66-1.25); MAGNESIUM 2.3 mg/dL (1.6-2.3); POTASSIUM 3.9 mmol/L (3.4-5.0); TOTAL PROTEIN 8.2 gm/dL (6.4-8.2)
[2020-11-29 19:56] LABS: ANISOCYTOSIS 1+; BAND 1 % (0-10); HYPOCHROMIA 1+; LYMPHOCYTE 4 % (20.0-51.0); MICROCYTOSIS 1+; NEUTROPHILS 92 % (42.0-75.2); POIKILOCYTOSIS 1+
[2020-11-29 19:57] LABS: OVALOCYTES 1+; PLATELET ESTIMATE NORMAL (NORMAL)
[2020-11-29] MEDS ORDERED: CEFTIN500 MG PO (20:00)
[2020-11-29 20:27] VITALS: BP 184/74; PULSE 91
== END 2020-11-29 20:18 | disposition home or self-care (01) ==
LOC: COL.ER 18:16
PROVIDERS: Emergency Medicine
DX: N39.0 Urinary tract infection, site not specified (principal); I10 Essential (primary) hypertension; E78.5 Hyperlipidemia, unspecified; I25.10 Atherosclerotic heart disease of native coronary artery without angina pectoris; I48.91 Unspecified atrial fibrillation; K21.9 Gastro-esophageal reflux disease without esophagitis; N40.0 Benign prostatic hyperplasia without lower urinary tract symptoms; E11.9 Type 2 diabetes mellitus without complications; I12.9 Hypertensive chronic kidney disease with stage 1 through stage 4 chronic kidney disease, or unspecified chronic kidney disease; Z95.9 Presence of cardiac and vascular implant and graft, unspecified; Z79.01 Long term (current) use of anticoagulants; Z86.73 Personal history of transient ischemic attack (TIA), and cerebral infarction without residual deficits
CPT/HCPCS: J0696

== ENCOUNTER 2021-04-23 07:56 | Day surgery (SDC) | payer MEDICARE, BC ==
[~2021-04-23] VITALS: Ht 170.2 cm; Wt 78.6 kg
[~2021-04-23 07:56] MED LIST changes: +CEFTIN500 MG PO
[2021-04-23] MEDS ORDERED: MUCINEX 60600 MG/TA1 PO (08:46)
[2021-04-23 09:06] VITALS: BP 115/65; PULSE 97; TEMP 98.8
[2021-04-23 09:45] VITALS: BP 104/44; PULSE 83; TEMP 97.8
--- NOTE | 2021-04-23 09:45 | NUR ---
Pt returned via cart to bay 2. Alert and oriented. Postop vitals started. grape juice and muffin provided. Will continue to monitor.
[2021-04-23 10:00] VITALS: BP 99/44; PULSE 73
--- NOTE | 2021-04-23 10:00 | NUR ---
Pt sitting up in chair. Alert and oriented. Tolerating food and drink, c/o food feeling stuck, but reports that this is not new and is the reason for procedure. Will continue to monitor.
[2021-04-23 10:15] VITALS: BP 121/66; PULSE 75
--- NOTE | 2021-04-23 10:15 | NUR ---
Pt sitting up in chair. Alert and oriented. Tolerating food and drink. Vitals stable.
--- NOTE | 2021-04-23 10:30 | NUR ---
Dr. dey to speak with pt.
--- NOTE | 2021-04-23 10:40 | NUR ---
D/C IV. Wet under dressing. No signs of infiltration. Covered with co band and cotton balls. Education done about Sx of infection to watch for, verbalized understanding. Reviewed discharge instructions, pt and verbalized understanding. Instructed to dress and then open door when ready for transportation.
--- NOTE | 2021-04-23 10:57 | NUR ---
Transported pt via wheelchair to personal vehicle accompanied by .
== END 2021-04-23 10:57 | disposition home or self-care (01) ==
LOC: SDCO 07:56
DX: K21.9 Gastro-esophageal reflux disease without esophagitis (principal); K22.8 Other specified diseases of esophagus; K29.50 Unspecified chronic gastritis without bleeding; K22.4 Dyskinesia of esophagus; R13.10 Dysphagia, unspecified; K63.4 Enteroptosis; K44.9 Diaphragmatic hernia without obstruction or gangrene; I25.10 Atherosclerotic heart disease of native coronary artery without angina pectoris; I48.91 Unspecified atrial fibrillation; I13.10 Hypertensive heart and chronic kidney disease without heart failure, with stage 1 through stage 4 chronic kidney disease, or unspecified chronic kidney disease; E11.22 Type 2 diabetes mellitus with diabetic chronic kidney disease; N18.4 Chronic kidney disease, stage 4 (severe); E78.5 Hyperlipidemia, unspecified; G47.33 Obstructive sleep apnea (adult) (pediatric); J44.9 Chronic obstructive pulmonary disease, unspecified; M19.90 Unspecified osteoarthritis, unspecified site; D64.9 Anemia, unspecified; D69.6 Thrombocytopenia, unspecified; Z86.73 Personal history of transient ischemic attack (TIA), and cerebral infarction without residual deficits; Z79.890 Hormone replacement therapy; Z79.899 Other long term (current) drug therapy; Z87.891 Personal history of nicotine dependence; Z99.89 Dependence on other enabling machines and devices; Z85.038 Personal history of other malignant neoplasm of large intestine
CPT/HCPCS: J2704; J7030

== ENCOUNTER → 2021-05-02 | Outpatient (CLI) | payer MEDICARE, BC ==
[~2021-05-02] MED LIST changes: +FOLIC ACID 11 MG/TA1 PO; +MUCINEX 60600 MG/TA1 PO; +PRINIVIL20 MG; +REGLAN 5MG T5 MG/TAB PO; +VITAMIN E 400 U4001 PO; +ZAROXOLYN 2.52.5 MG PO; +ZESTRIL 20MG TA20 MG PO
== END ==
LOC: COL.RAD 07:27
DX: K31.84 Gastroparesis (principal)
CPT/HCPCS: A9541

== ENCOUNTER 2021-05-05 20:29 | Observation (INO) | payer MEDICARE, BC ==
[~2021-05-05] VITALS: Ht 170.2 cm; Wt 80.4 kg
[~2021-05-05 20:29] MED LIST changes: -FOLIC ACID 11 MG/TA1 PO; -PRINIVIL20 MG; -REGLAN 5MG T5 MG/TAB PO; -VITAMIN E 400 U4001 PO; -ZAROXOLYN 2.52.5 MG PO; -ZESTRIL 20MG TA20 MG PO
[2021-05-05 22:03] LABS: BASO % 0.7 % (0.0-2.0); EOS # 0.1 (0.0-0.7); EOS % 2.9 % (0-4.0); GRAN # 3.4 (1.4-6.5); GRAN % 81.9 % (42.2-75.2); LYMPH # 0.3 (1.2-3.4); LYMPH % 7.2 % (20.0-51.0); MEAN CELL VOLUME 85 fl (80.0-100.0); MEAN CORPUSCULAR HGB CONC 31 g/dl (33.0-37.0); MEAN PLATELET VOLUME 10.8 fl (7.4-10.4); MONO # 0.3 (0.1-0.6); MONO % 6.8 % (1.7-9.3); PLATELET COUNT 78 K/mm3 (130-400); RED BLOOD COUNT 3.59 M/mm3 (4.20-5.60); REDCELL DISTRIBUTION WIDTH-CV 17.8 % (11.5-14.5)
[2021-05-05 22:04] LABS: HEMATOCRIT 30.4 % (42.0-52.0); HEMOGLOBIN 9.5 g/dl (13.5-18.0); MEAN CORPUSCULAR HEMOGLOBIN 26 pg (27.0-31.0)
[2021-05-05 22:14] LABS: ALBUMIN 4.5 gm/dL (3.5-5.0); BILIRUBIN,TOTAL 0.5 mg/dL (0.0-1.0); C-REACTIVE PROTEIN 2.3 mg/dL (0.0-0.9); CALCIUM 9.9 mg/dL (8.4-10.2); CREATININE, serum 9.78 (0.66-1.25); POTASSIUM 4.8 mmol/L (3.4-5.0); TOTAL PROTEIN 7.8 gm/dL (6.4-8.2)
[2021-05-05 23:20] LABS: COLLECTION METHOD CLEAN CATCH
[2021-05-05 23:25] LABS: PH 5 (5-8); SQUAMOUS EPITHELIAL 0-2 /hpf; URINE APPEARANCE Clear; URINE BACTERIA None Seen /hpf; URINE BILIRUBIN Negative (NEGATIVE); URINE BLOOD Negative (NEGATIVE); URINE COLOR Yellow; URINE GLUCOSE Negative (NEGATIVE); URINE KETONE Negative (NEGATIVE); URINE LEUKOCYTE ESTERASE Negative (NEGATIVE); URINE NITRATE Negative (NEGATIVE); URINE PROTEIN(semi-quant) 2+ (NEGATIVE); URINE RBC 0-2 /hpf; URINE UROBILINOGEN Negative (NEGATIVE)
[2021-05-06] VITALS (7 sets, daily range): BP systolic 165–187; BP diastolic 62–77; PULSE 81–88; TEMP 97.5–98.4
[2021-05-06] MEDS ORDERED: PRINIVIL20 MG (06:22)
--- NOTE | 2021-05-06 06:52 | NUR ---
Pt fever broke upon admission. two temperatures taken at 97.5 orally.
--- NOTE | 2021-05-06 12:43 | NUR ---
First visit from the editorial clerk. No needs right now.
--- NOTE | 2021-05-06 13:16 | NUR ---
yard worker met with patient and spouse to discuss discharge planning. Patient states he lives at home with his spouse and has been independent with all of his activities of daily living. Patient's primary care provider is Dr Elizalde and patient states he has advance directives on file at the hospital. Patient plans to return home upon discharge. *Plan is to return home*
[2021-05-06 15:12] LABS: THEOPHYLLINE 25.4 ug/mL (10.0-20.0)
[2021-05-06 16:12] LABS: THYROID STIMULATING HORMONE 2.587 uIU/mL (0.350-4.940)
--- NOTE | 2021-05-06 19:36 | NUR ---
PATIENT HAS HAD AN OK DAY. IV FLUIDS STARTED ORDERED. APRESOLINE GIVEN 2X THIS SHIFT. ST AND GI CONSULTED. PATIENT DENIES ANY PAIN, DISCOMFORT, SOA, OR FURTHER NEEDS AT THIS TIME. PATIENT A&O. VSS. CALL LIGHT IN REACH.
--- NOTE | 2021-05-06 23:19 | NUR ---
PT ALERT AND ORIENTED. RESTING UPON ENTRY. PT HEART MURMUR AUSCULTATED, PT STATES HE HAS HAD THIS MURMUR FOR QUITE SOME TIME. PT ABLE TO AMBULATE IN ROOM INDEPENDENTLY. PT DENIES PAIN AT THIS TIME. PT CALL LIGHT WITHIN REACH.
[2021-05-07] VITALS (7 sets, daily range): BP systolic 147–179; BP diastolic 57–75; PULSE 67–91; TEMP 97.7–99.3
--- NOTE | 2021-05-07 04:58 | NUR ---
PT WEIGHT WAS FIRST TAKEN IN THIS BED ON FLOOR. WEIGHT VARIANCE NOTED, WILL PASS ON TO DAY SHIFT FOR MONITORING.
--- NOTE | 2021-05-07 04:59 | NUR ---
PT CONTINUING ON PLAN OF CARE. PT DENIED N/V THIS SHIFT. PT ABLE TO AMBULATE IN ROOM TO BATHROOM. PT ALERT AND ORIENTED THIS SHIFT. PT DENIED PAIN. PT FLUIDS RUNNING PER ORDERS. PT HAS CALL LIGHT WITHIN REACH, ABLE TO GET REST THIS SHIFT. PT FREE FROM INJURY THIS SHIFT.
[2021-05-07 07:26] LABS: BASO % 0.4 % (0.0-2.0); EOS # 0.1 (0.0-0.7); EOS % 2.4 % (0-4.0); GRAN # 3.7 (1.4-6.5); GRAN % 81.8 % (42.2-75.2); HEMATOCRIT 27.3 % (42.0-52.0); HEMOGLOBIN 8.6 g/dl (13.5-18.0); LYMPH # 0.4 (1.2-3.4); LYMPH % 8.4 % (20.0-51.0); MEAN CELL VOLUME 86 fl (80.0-100.0); MEAN CORPUSCULAR HEMOGLOBIN 27 pg (27.0-31.0); MEAN CORPUSCULAR HGB CONC 32 g/dl (33.0-37.0); MEAN PLATELET VOLUME 12.8 fl (7.4-10.4); MONO # 0.3 (0.1-0.6); MONO % 6.6 % (1.7-9.3); PLATELET COUNT 65 K/mm3 (130-400); RED BLOOD COUNT 3.17 M/mm3 (4.20-5.60); REDCELL DISTRIBUTION WIDTH-CV 18.1 % (11.5-14.5)
[2021-05-07 07:34] LABS: ALBUMIN 3.6 gm/dL (3.5-5.0); CALCIUM 9.1 mg/dL (8.4-10.2); CREATININE, serum 8.23 (0.66-1.25); PHOSPHOROUS 3.7 mg/dL (2.5-4.5); POTASSIUM 4.3 mmol/L (3.4-5.0)
--- NOTE | 2021-05-07 08:20 | NUR ---
resting in bed, had breakfast and tolerated well, full assessment completed, see interventions for further info, up and ambulated to bathroom and moves with steady gait, denies needs
--- NOTE | 2021-05-07 09:00 | NUR ---
had breakfast and tolerated well, resting in bed visiting with his , denies needs
--- NOTE | 2021-05-07 10:41 | NUR ---
ambulating in patiño with physical therapy
--- NOTE | 2021-05-07 11:33 | NUR ---
remains in bed, denies nausea or vomitting,
--- NOTE | 2021-05-07 13:04 | NUR ---
chemical research worker collaborated with Tammie, physical therapy, and they are recommneding outpatient physical therapy. Tammie states that patient wishes to obtain outpatient at [facility] via [facility]. Worker met with Selina and Dr Driscoll and advised of the above information.
--- NOTE | 2021-05-07 13:40 | NUR ---
ambulated in patiño with standby assist of nurse per patient's request, ambulates with steady gait
--- NOTE | 2021-05-07 16:00 | NUR ---
in bed dozes at intervals, arouses easily
--- NOTE | 2021-05-07 19:03 | NUR ---
bedside shift report given to MARIA EUGENIA Muniz and Melissa RN
--- NOTE | 2021-05-07 21:40 | NUR ---
Patient is resting in bed, alert and oriented, no pain, nausea or vomiting. Meds provided, assisted with ice. No further needs at this time. Call light within reach.
[2021-05-08 00:14] VITALS: BP 161/62; PULSE 78; TEMP 98.3
[2021-05-08 02:54] VITALS: BP 151/48; PULSE 77; TEMP 98.5
[2021-05-08 07:06] LABS: BASO % 0.5 % (0.0-2.0); EOS # 0.1 (0.0-0.7); EOS % 2.3 % (0-4.0); GRAN # 3.4 (1.4-6.5); GRAN % 83.9 % (42.2-75.2); LYMPH # 0.3 (1.2-3.4); LYMPH % 6.8 % (20.0-51.0); MEAN CELL VOLUME 84 fl (80.0-100.0); MEAN CORPUSCULAR HGB CONC 32 g/dl (33.0-37.0); MONO # 0.2 (0.1-0.6); PLATELET COUNT 69 K/mm3 (130-400)
[2021-05-08 07:07] LABS: HEMATOCRIT 25.2 % (42.0-52.0); MEAN CORPUSCULAR HEMOGLOBIN 27 pg (27.0-31.0)
--- NOTE | 2021-05-08 07:11 | NUR ---
Patient has had a very calm night. He did not complain of nausea or vomiting. He has been stable. No further needds at this time. Shift report given to day nurse.
[2021-05-08 07:13] LABS: ALBUMIN 3.4 gm/dL (3.5-5.0); CALCIUM 8.9 mg/dL (8.4-10.2); CREATININE, serum 7.79 (0.66-1.25); PHOSPHOROUS 3.7 mg/dL (2.5-4.5); POTASSIUM 4.1 mmol/L (3.4-5.0)
[2021-05-08 09:06] VITALS: BP 154/45; PULSE 83; TEMP 98.5
--- NOTE | 2021-05-08 09:18 | NUR ---
Pt assessment complete. Pt is sitting up in bed, at bedside. Denies any pain. No SOB. Awaiting breakfast at this time. IVF infusing without issues. No further needs, call light within reach
[2021-05-08] MEDS ORDERED: REGLAN 5MG T5 MG/TAB PO ×2 (11:19)
--- NOTE | 2021-05-08 12:04 | NUR ---
grommet worker along with nurse case management Nabila present Fuller form to patient. grommet worker educated patient on reasoning and witnessed patient sign form. Copy placed in chart and original given to the patient.
[2021-05-08 12:44] VITALS: BP 160/58; PULSE 75; TEMP 98.6
--- NOTE | 2021-05-08 13:30 | NUR ---
Discharge paperwork and instructions reveiwed with patient. All questions answered at this time. IV to RAC dc'd catheter tip intact. Pt wheeled out of facility at this time.
== END 2021-05-08 13:30 | disposition home or self-care (01) ==
LOC: COL.ER 20:29 → MEDICAL 23:09
PROVIDERS: Internal Medicine Gastroenterology; Nurse Practitioner Primary Care; ADMIT Internal Medicine Nephrology
DX: N17.9 Acute kidney failure, unspecified (principal); I25.10 Atherosclerotic heart disease of native coronary artery without angina pectoris; I50.30 Unspecified diastolic (congestive) heart failure; I13.10 Hypertensive heart and chronic kidney disease without heart failure, with stage 1 through stage 4 chronic kidney disease, or unspecified chronic kidney disease; D63.1 Anemia in chronic kidney disease; E11.22 Type 2 diabetes mellitus with diabetic chronic kidney disease; K22.8 Other specified diseases of esophagus; K21.00 Gastro-esophageal reflux disease with esophagitis, without bleeding; N18.4 Chronic kidney disease, stage 4 (severe); I48.91 Unspecified atrial fibrillation; I44.7 Left bundle-branch block, unspecified; I13.0 Hypertensive heart and chronic kidney disease with heart failure and stage 1 through stage 4 chronic kidney disease, or unspecified chronic kidney disease; I08.3 Combined rheumatic disorders of mitral, aortic and tricuspid valves; E78.5 Hyperlipidemia, unspecified; D69.6 Thrombocytopenia, unspecified; K21.9 Gastro-esophageal reflux disease without esophagitis; G47.30 Sleep apnea, unspecified; Z79.899 Other long term (current) drug therapy; Z79.01 Long term (current) use of anticoagulants; Z79.890 Hormone replacement therapy; Z85.038 Personal history of other malignant neoplasm of large intestine; Z86.010 Personal history of colon polyps; Z85.828 Personal history of other malignant neoplasm of skin; Z86.73 Personal history of transient ischemic attack (TIA), and cerebral infarction without residual deficits; Z87.891 Personal history of nicotine dependence
CPT/HCPCS: G0378; J2765; J7030

== ENCOUNTER 2021-05-13 16:36 | Inpatient (IN) | payer MEDICARE, BC ==
[~2021-05-13] VITALS: Ht 167.6 cm; Wt 84.6 kg
[~2021-05-13 16:36] MED LIST changes: +PRINIVIL20 MG; +REGLAN 5MG T5 MG/TAB PO
[2021-05-14] MEDS ORDERED: ZESTRIL 20MG TA20 MG PO (08:01)
[2021-05-14] MEDS ORDERED: ZAROXOLYN 2.52.5 MG PO (08:04)
--- NOTE | 2021-05-14 09:56 | NUR ---
PT ARRIVES TO ROOM 328 VIA WHEELCHAIR @ 0730. PT SPOUSE IS @ BEDSIDE. RESTRICED EXTREMITY BRACELET IS ON LEFT ARM. PT IS ASSISTED TO CHANGE INTO GOWN. NO OPEN WOUNDS OR SKIN ISSUES NOTED. PT'S GAIT IS STEADY WITH CANE, REQUIRES STANDBY ASSIST. ADMISSION ASSESSMENT COMPLETED. PT IS INSTRUCTED ON UNIT ROUTINE, FALL PRECAUTIONS ET USE OF CALL LIGHT.
[2021-05-14 10:22] LABS: BASO % 0.7 % (0.0-2.0); EOS # 0.1 (0.0-0.7); EOS % 2.7 % (0-4.0); GRAN # 2.4 (1.4-6.5); GRAN % 80.1 % (42.2-75.2); LYMPH # 0.3 (1.2-3.4); LYMPH % 8.8 % (20.0-51.0); MEAN CELL VOLUME 84 fl (80.0-100.0); MEAN CORPUSCULAR HGB CONC 32 g/dl (33.0-37.0); MEAN PLATELET VOLUME 10.8 fl (7.4-10.4); MONO # 0.2 (0.1-0.6); MONO % 7.4 % (1.7-9.3); PLATELET COUNT 95 K/mm3 (130-400); RED BLOOD COUNT 2.59 M/mm3 (4.20-5.60); REDCELL DISTRIBUTION WIDTH-CV 18.5 % (11.5-14.5)
[2021-05-14 10:26] LABS: HEMATOCRIT 21.7 % (42.0-52.0); MEAN CORPUSCULAR HEMOGLOBIN 27 pg (27.0-31.0)
[2021-05-14 10:32] LABS: ALBUMIN 3.3 gm/dL (3.5-5.0); BILIRUBIN,TOTAL 0.4 mg/dL (0.0-1.0); CALCIUM 8.7 mg/dL (8.4-10.2); CREATININE, serum 8.7 (0.66-1.25); POTASSIUM 4.8 mmol/L (3.4-5.0); TOTAL PROTEIN 6.3 gm/dL (6.4-8.2)
[2021-05-14 11:29] VITALS: BP 152/57; PULSE 63; TEMP 98.1
[2021-05-14 12:46] LABS: INR 1.7 (0.8-3.0)
--- NOTE | 2021-05-14 13:20 | NUR ---
RECEIVED CALL THAT PT IS SCHEDULED FOR SURGERY @ 7299 ON 05/15/21 ET THAT ORDER FORM WILL BE FAXED OVER.
[2021-05-14 16:04] VITALS: BP 152/38; PULSE 77; TEMP 98.2
--- NOTE | 2021-05-14 16:30 | NUR ---
PT CONSENT SIGNED FOR SURGERY TOMORROW. PT IS EDUCATED ON DIALYSIS DIET ET FLUID RESTRICTION, ENCOURAGED TO WRITE DOWN ANY QUESTIONS FOR PHYSICIAN, GIVEN A PIECE OF PAPER ET PENCIL. PT DEMONSTRATES UNDERSTANDING OF EDUCATION.
[2021-05-14 19:22] VITALS: BP 180/52; PULSE 70; TEMP 98.5
[2021-05-14 19:51] VITALS: BP 151/57; PULSE 59
--- NOTE | 2021-05-14 20:00 | NUR ---
PATIENT IS SITTING UP IN BED ALERT AND ORINETED X4. PATIENT TO BE NPO AT MIDNIGHT FOR SURGERY IN THE AM. PATIENT HAS IV TO RIGHT UPPER ARM. LEFT ARM RESTRICTED. PATIENT ON DIALYSIS DIET AND 1500 ML FLUID RESTRICITON. PATIENT DENIES PAIN OR FURTHER NEEDS AT THIS TIME. CALL LIGHT WITHIN REACH. HEAD TO TOE ASSESSMENT COMPLETE.
[2021-05-14 23:02] VITALS: BP 156/51; PULSE 64; TEMP 98.1
[2021-05-15] LABS: HEPATITIS B SURFACE ANTIBODY <2.0 (()); HEPATITIS B SURFACE ANTIGEN Negative (Negative); HEPATITIS C VIRUS ANTIBODY Negative (Negative)
[2021-05-15 03:00] VITALS: BP 175/59; PULSE 64; TEMP 98
--- NOTE | 2021-05-15 06:25 | NUR ---
PATIENT DID WELL THROUGHOUT NIGHT. SLEPT MOST OF NIGHT. NPO AT MIDNIGHT. PATIENT DENIES PAIN OR FURTHER NEEDS AT THIS TIME. WILL REPORT TO DAY SHIFT.
[2021-05-15 07:18] LABS: BASO % 0.7 % (0.0-2.0); EOS # 0.1 (0.0-0.7); EOS % 2.8 % (0-4.0); GRAN # 2.4 (1.4-6.5); GRAN % 81.4 % (42.2-75.2); LYMPH # 0.3 (1.2-3.4); LYMPH % 8.6 % (20.0-51.0); MEAN CELL VOLUME 84 fl (80.0-100.0); MEAN CORPUSCULAR HGB CONC 32 g/dl (33.0-37.0); MEAN PLATELET VOLUME 12.1 fl (7.4-10.4); MONO # 0.2 (0.1-0.6); MONO % 6.2 % (1.7-9.3); PLATELET COUNT 103 K/mm3 (130-400); RED BLOOD COUNT 2.57 M/mm3 (4.20-5.60); REDCELL DISTRIBUTION WIDTH-CV 18.3 % (11.5-14.5)
[2021-05-15 07:24] LABS: ALBUMIN 3.1 gm/dL (3.5-5.0); BILIRUBIN,TOTAL 0.4 mg/dL (0.0-1.0); CALCIUM 8.5 mg/dL (8.4-10.2); CREATININE, serum 8.46 (0.66-1.25); POTASSIUM 4.8 mmol/L (3.4-5.0); TOTAL PROTEIN 6.1 gm/dL (6.4-8.2)
[2021-05-15 07:28] LABS: HEMATOCRIT 21.6 % (42.0-52.0); MEAN CORPUSCULAR HEMOGLOBIN 27 pg (27.0-31.0)
--- NOTE | 2021-05-15 09:33 | NUR ---
PT TO FLOOR DIRECT TO DIALYSIS AFTER FISTULA CREATION. AT BEDSIDE. JACKLYN DEL CID TOOK OVER CARE FOR DIALYSIS. PT IS DROWSEY BUT AROUSEABLE TO VERBAL.
--- NOTE | 2021-05-15 11:52 | NUR ---
PT RETURNED TO ROOM FROM DIALYSIS, ORIENTED PT TO ROOM AND ROOM SERVICE. SHOWED PT AND HOW TO ORDER MEALS. DC'D TB TEST PER ROSA GONZALEZ.
[2021-05-15 12:07] VITALS: BP 168/74; PULSE 56; TEMP 97.6
--- NOTE | 2021-05-15 13:30 | NUR ---
PT UP TO BR VOIDED AND RETURNED TO BED. SBA X1.
[2021-05-15 15:02] VITALS: BP 139/47; PULSE 72; TEMP 97.8
[2021-05-15 19:20] VITALS: BP 148/46; PULSE 52; TEMP 98
--- NOTE | 2021-05-15 20:00 | NUR ---
PATIENT IS ALERT AND ORIENTED X4. SITTING UP IN BED. PATIENT HAS FISTULA TO LEFT FOREARM. BRUIT AND THRILL PRESENT. PATIENT HAS LEFT FOREARM IV INT. PATIENT SET TO GO TO DIALYSIS IN THE AM. PATIENT HAS ON SCD'S BILATERAL LOWER EXTREMITIES. PATIENT ON DIALYSIS DIET AND 1500ML FLUID RESTRICTION. PATIENT DENIES PAIN OR FURTHER NEEDS AT THIS TIME. PATIENT GIVEN WARM BLANKET. CALL LIGHT WITHIN REACH. HEAD TO TOE ASSESSMENT COMPLETE.
[2021-05-15 23:34] VITALS: BP 141/58; PULSE 54; TEMP 98.1
[2021-05-16 03:31] VITALS: BP 173/56; PULSE 65; TEMP 98.3
--- NOTE | 2021-05-16 06:17 | NUR ---
PATIENT DENIED PAIN THROUGHOUT THE NIGHT BUT DID NOT SLEEP WELL. NO FURTHER NEEDS AT THIS TIME. CALL LIGHT WITHIN REACH. WILL REPORT TO DAY SHIFT.
[2021-05-16 08:08] VITALS: BP 176/79; PULSE 77; TEMP 77
[2021-05-16 08:17] LABS: BASO % 0.3 % (0.0-2.0); EOS # 0.1 (0.0-0.7); EOS % 2.9 % (0-4.0); GRAN # 2.5 (1.4-6.5); GRAN % 80.8 % (42.2-75.2); LYMPH # 0.3 (1.2-3.4); LYMPH % 9.6 % (20.0-51.0); MEAN CELL VOLUME 87 fl (80.0-100.0); MEAN CORPUSCULAR HGB CONC 31 g/dl (33.0-37.0); MEAN PLATELET VOLUME 12.2 fl (7.4-10.4); MONO # 0.2 (0.1-0.6); MONO % 6.1 % (1.7-9.3); PLATELET COUNT 113 K/mm3 (130-400); REDCELL DISTRIBUTION WIDTH-CV 18.5 % (11.5-14.5)
[2021-05-16 08:26] LABS: ALBUMIN 3.6 gm/dL (3.5-5.0); BILIRUBIN,TOTAL 0.3 mg/dL (0.0-1.0); CALCIUM 8.7 mg/dL (8.4-10.2); CREATININE, serum 6.6 (0.66-1.25); POTASSIUM 4.3 mmol/L (3.4-5.0); TOTAL PROTEIN 6.4 gm/dL (6.4-8.2)
[2021-05-16 08:27] LABS: HEMATOCRIT 24.4 % (42.0-52.0); HEMOGLOBIN 7.6 g/dl (13.5-18.0); MEAN CORPUSCULAR HEMOGLOBIN 27 pg (27.0-31.0)
[2021-05-16 10:47] LABS: IRON,SERUM 66 ug/dL (35-150)
[2021-05-16 10:56] LABS: TOTAL IRON BINDING CAPACITY 159 ug/dL (261-462)
[2021-05-16 13:47] VITALS: BP 152/62; PULSE 75; TEMP 97.3
[2021-05-16] MEDS ORDERED: REGLAN 5MG T5 MG/TAB PO (14:03)
[2021-05-16] MEDS ORDERED: VITAMIN E 400 U4001 PO (14:05)
[2021-05-16] MEDS ORDERED: FOLIC ACID 11 MG/TA1 PO (14:05)
--- NOTE | 2021-05-16 14:36 | NUR ---
lasting floorworker met with patient to discuss discharge plan. Patient lives at home with his Riana ([phone] c / [phone] h) who is present at bedside. Patient reports he is fully independent with ADL's and uses a cane to assist with mobility. Reports to having a walker at home and uses it prn. PCP is Dr. Elizalde and uses [facility] for medications. Reports no issues being able to afford medications. DPOA-HC on file with the hospital. Patient expresses no concerns with returning home. *Discharge plan: Home*
[2021-05-16 14:49] VITALS: BP 186/73; PULSE 66; TEMP 98.5
--- NOTE | 2021-05-16 15:28 | NUR ---
DISCHARGE INSTRUCTIONS REVIEWED WITH PT AND . QUESTIONS SOLICITED AND ANSWERED. PT TAKEN OUT TO EMERGENCY EXIT.
== END 2021-05-16 15:30 | disposition home or self-care (01) | DRG 264 ==
LOC: MEDICAL 16:36 → SURG 05-14 07:26
PROVIDERS: Surgery; ADMIT Internal Medicine Nephrology
PROC: 0JH63XZ Insertion of Tunneled Vascular Access Device into Chest Subcutaneous Tissue and Fascia, Percutaneous Approach (ICD-10-PCS; 2021-05-15)
PROC: 031C3ZF Bypass Left Radial Artery to Lower Arm Vein, Percutaneous Approach (ICD-10-PCS; principal; 2021-05-15 07:30)
PROC: 5A1D70Z Performance of Urinary Filtration, Intermittent, Less than 6 Hours Per Day (ICD-10-PCS; 2021-05-15 07:30)
DX: I13.2 Hypertensive heart and chronic kidney disease with heart failure and with stage 5 chronic kidney disease, or end stage renal disease (principal); N18.6 End stage renal disease; D61.818 Other pancytopenia; I50.30 Unspecified diastolic (congestive) heart failure; D69.6 Thrombocytopenia, unspecified; E11.22 Type 2 diabetes mellitus with diabetic chronic kidney disease; I25.10 Atherosclerotic heart disease of native coronary artery without angina pectoris; E78.5 Hyperlipidemia, unspecified; K21.9 Gastro-esophageal reflux disease without esophagitis; D63.1 Anemia in chronic kidney disease; E11.43 Type 2 diabetes mellitus with diabetic autonomic (poly)neuropathy; K31.84 Gastroparesis; E87.70 Fluid overload, unspecified; Z87.891 Personal history of nicotine dependence; Z85.038 Personal history of other malignant neoplasm of large intestine; Z86.73 Personal history of transient ischemic attack (TIA), and cerebral infarction without residual deficits; Z90.89 Acquired absence of other organs; Z95.818 Presence of other cardiac implants and grafts; I48.91 Unspecified atrial fibrillation; Z95.1 Presence of aortocoronary bypass graft
CPT/HCPCS: C1750; J1644; J1756; J7030; Q5105

== ENCOUNTER 2021-07-20 11:56 | Emergency (ER) | payer MEDICARE, BC ==
[~2021-07-20] VITALS: Ht 170.2 cm; Wt 81.8 kg
[~2021-07-20 11:56] MED LIST changes: +FOLIC ACID 11 MG/TA1 PO; +VITAMIN E 400 U4001 PO; +ZAROXOLYN 2.52.5 MG PO; +ZESTRIL 20MG TA20 MG PO
[2021-07-20 12:05] VITALS: TEMP 98.1
[2021-07-20 13:52] VITALS: BP 157/79; PULSE 88
== END 2021-07-20 14:12 | disposition home or self-care (01) ==
LOC: COL.ER 11:56
DX: S82.831A Other fracture of upper and lower end of right fibula, initial encounter for closed fracture (principal); I50.9 Heart failure, unspecified; I48.91 Unspecified atrial fibrillation; Z86.73 Personal history of transient ischemic attack (TIA), and cerebral infarction without residual deficits; Z79.01 Long term (current) use of anticoagulants; Z79.899 Other long term (current) drug therapy; W19.XXXA Unspecified fall, initial encounter
CPT/HCPCS: 31868; L4386

== ENCOUNTER 2021-12-06 19:34 | Emergency (ER) | payer MEDICARE, BC ==
[~2021-12-06] VITALS: Ht 170.2 cm; Wt 78.2 kg
[2021-12-06 19:52] VITALS: TEMP 98.5
[2021-12-06 20:31] LABS: BASO # 0.1 K/mm3 (0.0-0.2); EOS # 0.2 K/mm3 (0.0-0.7); EOS % 4.9 % (0.0-4.0); GRAN # 3.6 K/mm3 (1.4-6.5); GRAN % 73.6 % (42.2-75.2); LYMPH # 0.6 K/mm3 (1.2-3.4); LYMPH % 13.1 % (20.0-51.0); MEAN CELL VOLUME 95 fl (80.0-100.0); MEAN CORPUSCULAR HGB CONC 32 g/dl (33.0-37.0); MEAN PLATELET VOLUME 9.7 fl (7.4-10.4); MONO # 0.4 K/mm3 (0.1-0.6); MONO % 7.2 % (1.7-9.3); PLATELET COUNT 98 K/mm3 (130-400); RED BLOOD COUNT 3.17 M/mm3 (4.20-5.60); REDCELL DISTRIBUTION WIDTH-CV 17.6 % (11.5-14.5)
[2021-12-06 20:34] LABS: HEMATOCRIT 30.2 % (42.0-52.0); HEMOGLOBIN 9.7 g/dl (13.5-18.0); MEAN CORPUSCULAR HEMOGLOBIN 31 pg (27-31)
[2021-12-06 20:44] LABS: INR 1.4 (0.8-3.0); PROTHROMBIN TIME 15.7 SECONDS (9.7-12.8)
[2021-12-06 20:46] LABS: PARTIAL THROMBOPLASTIN TIME 32.7 SECONDS (26.0-37.0)
[2021-12-06 20:50] LABS: ALBUMIN 3.9 gm/dL (3.4-4.8); BILIRUBIN,TOTAL 0.5 mg/dL (0.2-1.2); CALCIUM 9.3 mg/dL (8.4-10.2); CREATININE, serum 6.53 mg/dL (0.72-1.25); POTASSIUM 4.9 mmol/L (3.5-4.5); TOTAL PROTEIN 7.4 gm/dL (6.2-8.1)
[2021-12-06 20:58] LABS: TROPONIN-I 0.058 ng/mL (0.00-0.033)
[2021-12-06 21:55] VITALS: BP 155/79; PULSE 65
== END 2021-12-06 22:05 | disposition home or self-care (01) ==
LOC: COL.ER 19:34
PROVIDERS: Family Medicine
DX: R00.0 Tachycardia, unspecified (principal); I48.91 Unspecified atrial fibrillation; R79.1 Abnormal coagulation profile; R79.89 Other specified abnormal findings of blood chemistry; Z79.01 Long term (current) use of anticoagulants; Z99.2 Dependence on renal dialysis

== ENCOUNTER 2022-05-10 06:24 | Observation (INO) | payer MEDICARE, BC ==
[~2022-05-10] VITALS: Ht 170.2 cm; Wt 78.2 kg
[~2022-05-10 06:24] MED LIST changes: +CARDIZEM CD 12120 MG PO; +ELIQUIS 2.5 PO; +LASIX 80MG TABL80 MG PO; +REFRESH DIGITAL10 ML OP; +RENO CAPS1 SGL PO; +SODIUM BICARBO650 MG
[2022-05-10 07:39] LABS: BASO % 0.4 % (0.0-2.0); EOS # 0.2 K/mm3 (0.0-0.7); GRAN # 3.3 K/mm3 (1.4-6.5); GRAN % 72.2 % (42.2-75.2); LYMPH # 0.6 K/mm3 (1.2-3.4); LYMPH % 13.8 % (20.0-51.0); MEAN CELL VOLUME 104 fl (80.0-100.0); MEAN CORPUSCULAR HGB CONC 32 g/dl (33.0-37.0); MEAN PLATELET VOLUME 10.8 fl (7.4-10.4); MONO # 0.4 K/mm3 (0.1-0.6); MONO % 8.2 % (1.7-9.3); PLATELET COUNT 102 K/mm3 (130-400); RED BLOOD COUNT 2.74 M/mm3 (4.20-5.60); REDCELL DISTRIBUTION WIDTH-CV 14.8 % (11.5-14.5)
[2022-05-10 07:41] LABS: HEMATOCRIT 28.6 % (42.0-52.0); HEMOGLOBIN 9.1 g/dl (13.5-18.0); MEAN CORPUSCULAR HEMOGLOBIN 33 pg (27-31)
[2022-05-10 07:55] LABS: ALBUMIN 3.4 gm/dL (3.4-4.8); BILIRUBIN,TOTAL 0.4 mg/dL (0.2-1.2); CREATININE, serum 7.27 mg/dL (0.72-1.25); POTASSIUM 4.3 mmol/L (3.5-4.5); TOTAL PROTEIN 6.3 gm/dL (6.2-8.1)
[2022-05-10 08:01] LABS: INR 1.4 (0.8-3.0); PROTHROMBIN TIME 15.9 SECONDS (9.7-12.8)
[2022-05-10 08:04] LABS: PARTIAL THROMBOPLASTIN TIME 33.9 SECONDS (26.0-37.0)
[2022-05-10 08:05] LABS: TROPONIN-I 0.047 ng/mL (0.00-0.033)
[2022-05-10] MEDS ORDERED: HYTRIN 5MG C5 MG/CAP PO (09:13)
[2022-05-10] MEDS ORDERED: ZAROXOLYN 2.52.5 MG PO (09:14)
[2022-05-10] MEDS ORDERED: MIRALAX PA17 GM/Dose PO (09:14)
[2022-05-10] MEDS ORDERED: MINOXIDIL 2.5 PO (09:15)
[2022-05-10] MEDS ORDERED: PHOSLO667 MG PO (09:16)
[2022-05-10] MEDS ORDERED: FIBER POWDER (09:18)
[2022-05-10] MEDS ORDERED: IMDUR 30MG30 MG/TAB PO (09:18)
[2022-05-10] MEDS ORDERED: ONE-A-DAY ESSE1 EACH PO (09:19)
[2022-05-10] MEDS ORDERED: ZTLIDO1 EACH TP (09:25)
[2022-05-10] MEDS ORDERED: REFRESH TEARS 330 ML OP (09:26)
[2022-05-10 11:23] VITALS: BP 160/45; PULSE 54; TEMP 98
[2022-05-10 14:58] VITALS: BP 123/74; PULSE 50; PULSE 97; TEMP 97.9
[2022-05-10 17:41] VITALS: BP 123/74; PULSE 50
[2022-05-10 19:40] VITALS: BP 132/34; PULSE 54; TEMP 97.7
[2022-05-11 00:15] VITALS: BP 113/34; PULSE 52; TEMP 98
[2022-05-11 04:12] VITALS: BP 142/43; PULSE 48; TEMP 98
[2022-05-11 07:33] VITALS: BP 130/26; PULSE 112; TEMP 97.8
[2022-05-11 12:22] VITALS: BP 123/33; PULSE 50; TEMP 97.7
[2022-05-11 15:07] LABS: BASO % 0.5 % (0.0-2.0); EOS # 0.2 K/mm3 (0.0-0.7); EOS % 4.2 % (0.0-4.0); GRAN # 3.1 K/mm3 (1.4-6.5); GRAN % 71.8 % (42.2-75.2); LYMPH # 0.6 K/mm3 (1.2-3.4); LYMPH % 14.3 % (20.0-51.0); MEAN CORPUSCULAR HGB CONC 33 g/dl (33.0-37.0); MEAN PLATELET VOLUME 10.4 fl (7.4-10.4); MONO # 0.4 K/mm3 (0.1-0.6); MONO % 8.5 % (1.7-9.3); PLATELET COUNT 109 K/mm3 (130-400); RED BLOOD COUNT 2.78 M/mm3 (4.20-5.60); REDCELL DISTRIBUTION WIDTH-CV 14.6 % (11.5-14.5)
[2022-05-11 15:08] LABS: HEMATOCRIT 27.5 % (42.0-52.0); MEAN CELL VOLUME 99 fl (80.0-100.0); MEAN CORPUSCULAR HEMOGLOBIN 32 pg (27-31)
[2022-05-11 15:16] LABS: CALCIUM 8.8 mg/dL (8.4-10.2); CREATININE, serum 9.54 mg/dL (0.72-1.25); POTASSIUM 5.2 mmol/L (3.5-4.5)
[2022-05-12 07:35] LABS: KAPPA FREE LIGHT CHAIN-SERUM 169.69 mg/L (()); KAPPA LAMBDA RATIO 1.52 ratio (()); LAMDA FREE LIGHT CHAIN SERUM 111.48 mg/L (())
[2022-05-13 19:04] LABS: A/G RATIO (PEP) 1.36 (()); BETA GLOBULINS (PEP) 0.7 g/dL (0.7-1.2)
== END 2022-05-11 19:00 | disposition home or self-care (01) ==
LOC: COL.ER 06:24 → MEDICAL 08:23
PROVIDERS: Family Medicine; Nurse Practitioner; ADMIT Internal Medicine Nephrology
DX: R55 Syncope and collapse (principal); I12.0 Hypertensive chronic kidney disease with stage 5 chronic kidney disease or end stage renal disease; E11.22 Type 2 diabetes mellitus with diabetic chronic kidney disease; N18.6 End stage renal disease; E44.0 Moderate protein-calorie malnutrition; D61.818 Other pancytopenia; D63.1 Anemia in chronic kidney disease; Z99.2 Dependence on renal dialysis
CPT/HCPCS: G0378; Q5105

== ENCOUNTER 2022-11-15 14:01 | Emergency (ER) | payer MEDICARE, BC ==
[~2022-11-15] VITALS: Ht 170.2 cm; Wt 80.9 kg
[~2022-11-15 14:01] MED LIST changes: +FIBER POWDER; +IMDUR 30MG30 MG/TAB PO; +PHOSLO667 MG PO; +ZTLIDO1 EACH TP
[2022-11-15 14:12] VITALS: TEMP 97.8
[2022-11-15 14:48] LABS: BASO % 0.7 % (0.0-2.0); EOS # 0.1 K/mm3 (0.0-0.7); EOS % 2.5 % (0.0-4.0); GRAN # 3.3 K/mm3 (1.4-6.5); GRAN % 73.8 % (42.2-75.2); HEMATOCRIT 26.6 % (42.0-52.0); HEMOGLOBIN 8.4 g/dl (13.5-18.0); LYMPH # 0.6 K/mm3 (1.2-3.4); LYMPH % 14.2 % (20.0-51.0); MEAN CELL VOLUME 97 fl (80.0-100.0); MEAN CORPUSCULAR HEMOGLOBIN 31 pg (27-31); MEAN CORPUSCULAR HGB CONC 32 g/dl (33.0-37.0); MEAN PLATELET VOLUME 10.5 fl (7.4-10.4); MONO # 0.4 K/mm3 (0.1-0.6); MONO % 8.3 % (1.7-9.3); PLATELET COUNT 122 K/mm3 (130-400); RED BLOOD COUNT 2.75 M/mm3 (4.20-5.60); REDCELL DISTRIBUTION WIDTH-CV 14.6 % (11.5-14.5)
[2022-11-15 15:03] LABS: ALBUMIN 3.4 gm/dL (3.4-4.8); BILIRUBIN,TOTAL 0.5 mg/dL (0.2-1.2); CALCIUM 9.4 mg/dL (8.4-10.2); CREATININE, serum 7.31 mg/dL (0.72-1.25); POTASSIUM 4.3 mmol/L (3.5-4.5); TOTAL PROTEIN 6.8 gm/dL (6.2-8.1)
[2022-11-15 16:12] VITALS: BP 139/52; PULSE 61
== END 2022-11-15 16:12 | disposition home or self-care (01) ==
LOC: COL.ER 14:01
PROVIDERS: Personal Emergency Response Attendant
DX: R19.7 Diarrhea, unspecified (principal); I13.2 Hypertensive heart and chronic kidney disease with heart failure and with stage 5 chronic kidney disease, or end stage renal disease; E11.22 Type 2 diabetes mellitus with diabetic chronic kidney disease; I50.30 Unspecified diastolic (congestive) heart failure; N18.6 End stage renal disease; D63.1 Anemia in chronic kidney disease; Z99.2 Dependence on renal dialysis; Z91.040 Latex allergy status
CPT/HCPCS: J7040

== ENCOUNTER 2023-05-27 11:06 | Emergency (ER) | payer MEDICARE, BC ==
[~2023-05-27] VITALS: Ht 172.7 cm; Wt 80.9 kg
[~2023-05-27 11:06] MED LIST changes: +ENTOCORT EC3 MG PO; +FLONASEALLERGY NS; +REMERON 15M15 MG/TA1 PO; +UNIPHYL 400MG400 MG PO
[2023-05-27 11:14] VITALS: TEMP 97.9
[2023-05-27 12:40] VITALS: BP 147/58; PULSE 84
== END 2023-05-27 12:41 | disposition home or self-care (01) ==
LOC: COL.ER 11:06
DX: R29.6 Repeated falls (principal); R41.3 Other amnesia; Z91.040 Latex allergy status

== ENCOUNTER 2023-11-16 08:59 | Outpatient (CLI) | payer MEDICARE, BC ==
[2023-11-16] VITALS (9 sets, daily range): BP systolic 153–184; BP diastolic 54–64; PULSE 53–58; TEMP 98.7
[~2023-11-16] VITALS: Ht 172.8 cm; Wt 86.8 kg
[2023-11-16] MEDS ORDERED: VITAMIN E 400 U4001 PO (10:07)
[2023-11-16] MEDS ORDERED: FOLIC ACID0.4 MG PO (10:08)
[2023-11-16] MEDS ORDERED: SODIUM BICARBO650 MG PO (10:11)
[2023-11-16] MEDS ORDERED: PRESERVISION1 SGL PO (10:11)
[2023-11-16] MEDS ORDERED: IMODIUM 2MG CAPS2 MG PO (10:12)
[2023-11-16] MEDS ORDERED: methylPREDNISolone Sod Succ 125 MG/2 ML VIAL IV ONE (10:15)
[2023-11-16] MEDS ORDERED: diphenhydrAMINE 50 MG/ML 1 ML VIAL IV ONE (10:15)
--- NOTE | 2023-11-16 11:08 | NUR ---
Refer to [employer] report for procedural sedation/notes
[2023-11-16] MEDS ORDERED: Iohexol 300 - 100 ML VIAL IV ONE (11:18)
[2023-11-16] MEDS ORDERED: Midazolam 2 MG/2 ML VIAL IV SCH (11:19)
[2023-11-16] MEDS ORDERED: fentaNYL 50 MCG/ML 2 ML VIAL IV SCH (11:19)
--- NOTE | 2023-11-16 12:58 | NUR ---
Meal tray provided. Pt free of complaints. Dressing remains clean, dry and intact. Thrill palpable. Call light in reach.
--- NOTE | 2023-11-16 13:56 | NUR ---
DC instructions reviewed with pt and . Both express understanding. Pt ate full meal during recovery period. Dressing over access site remains clean, dry and intact. Thrill palpable. He is steady on feet in room. IV DC'd, site wrapped with coban. He is assisted out to 's car with belongings.
== END 2023-11-16 13:56 | disposition home or self-care (01) ==
LOC: COL.CAR 08:59
DX: T82.838A Hemorrhage due to vascular prosthetic devices, implants and grafts, initial encounter (principal); Z87.891 Personal history of nicotine dependence; Z91.041 Radiographic dye allergy status; Z88.8 Allergy status to other drugs, medicaments and biological substances
CPT/HCPCS: C1769; J1200; J1644; J2250; J2930; J3010; Q9967

== ENCOUNTER → 2023-12-21 | Outpatient (CLI) | payer MEDICARE, BC ==
[~2023-12-21] MED LIST changes: +FOLIC ACID0.4 MG PO; +IMODIUM 2MG CAPS2 MG PO; +PRESERVISION1 SGL PO; +SODIUM BICARBO650 MG PO
== END ==
LOC: COL.RAD 13:04
DX: I63.89 Other cerebral infarction (principal); G31.9 Degenerative disease of nervous system, unspecified

== ENCOUNTER 2024-01-11 12:44 | Emergency (ER) | payer MEDICARE, BC ==
[~2024-01-11] VITALS: Ht 172.7 cm; Wt 86.8 kg
[2024-01-11 12:48] VITALS: TEMP 98.3
[2024-01-11 13:27] LABS: BASO # 0.1 K/mm3 (0.0-0.2); BASO % 0.9 % (0.0-2.0); EOS # 0.3 K/mm3 (0.0-0.7); EOS % 3.7 % (0.0-4.0); GRAN # 5.2 K/mm3 (1.4-6.5); HEMOGLOBIN 11.3 g/dl (13.5-18.0); LYMPH # 0.9 K/mm3 (1.2-3.4); LYMPH % 13.4 % (20.0-51.0); MEAN CELL VOLUME 102 fl (80.0-100.0); MEAN CORPUSCULAR HEMOGLOBIN 33 pg (27-31); MEAN CORPUSCULAR HGB CONC 32 g/dl (33.0-37.0); MEAN PLATELET VOLUME 10.1 fl (7.4-10.4); MONO # 0.5 K/mm3 (0.1-0.6); MONO % 7.4 % (1.7-9.3); PLATELET COUNT 136 K/mm3 (130-400); RED BLOOD COUNT 3.45 M/mm3 (4.20-5.60); REDCELL DISTRIBUTION WIDTH-CV 15.9 % (11.5-14.5)
[2024-01-11 13:28] LABS: HEMATOCRIT 35.3 % (42.0-52.0)
[2024-01-11 13:51] LABS: ALBUMIN 3.6 g/dL (3.4-4.8); BILIRUBIN,TOTAL 0.4 mg/dL (0.2-1.2); CREATININE, serum 6.96 mg/dL (0.72-1.25); POTASSIUM 3.9 mEq/L (3.5-4.5); TOTAL PROTEIN 7.4 g/dl (6.2-8.1)
[2024-01-11 13:59] LABS: TROPONIN-I 0.043 ng/mL (0.00-0.033)
[2024-01-11 15:01] VITALS: BP 171/70; PULSE 56
== END 2024-01-11 15:29 | disposition home or self-care (01) ==
LOC: COL.ER 12:44
PROVIDERS: Emergency Medicine
DX: S01.81XA Laceration without foreign body of other part of head, initial encounter (principal); M48.02 Spinal stenosis, cervical region; I48.91 Unspecified atrial fibrillation; R79.89 Other specified abnormal findings of blood chemistry; N18.6 End stage renal disease; Z99.2 Dependence on renal dialysis; Z79.01 Long term (current) use of anticoagulants; Z91.040 Latex allergy status; W19.XXXA Unspecified fall, initial encounter

== ENCOUNTER 2024-05-18 12:51 | Day surgery (SDC) | payer MEDICARE, BC ==
[~2024-05-18] VITALS: Ht 170.2 cm; Wt 81.4 kg
[~2024-05-18 12:51] MED LIST changes: +LR 1,000 ML IV SCH; +Ondansetron 4 MG/2 ML VIAL IV PRN; +TOPAMAX 25MG25 M1 PO
[2024-05-18 14:05] VITALS: BP 175/75; PULSE 84; TEMP 97.7
[2024-05-18] MEDS ORDERED: NS 1,000 ML IV SCH (14:45)
[2024-05-18 15:25] VITALS: BP 141/65; PULSE 64; TEMP 97.7
[2024-05-18 15:40] VITALS: BP 165/66; PULSE 67
--- NOTE | 2024-05-18 16:04 | NUR ---
1525- Pt returns to [facility] via cart, transfers to recliner with assistance x2, gait steady. VSS, monitors applied. IV fluids to RAC clamped off. LUE restriction, band on. at bedside. call light within reach. Muffin and apple juice given per request. 1533- Dr. Allen in room speaking with patient and . 1542- Discharge instructions and education given to pt and , questions answered. 1547- Pt dressed without difficulty, IV site removed. 1600- Pt discharges to wifes car via w/c, accompanied by this nurse. Denies any complaints.
== END 2024-05-18 16:00 | disposition home or self-care (01) ==
LOC: SDCO 12:51
DX: D12.5 Benign neoplasm of sigmoid colon (principal); K21.9 Gastro-esophageal reflux disease without esophagitis; D50.9 Iron deficiency anemia, unspecified; K92.1 Melena; K44.9 Diaphragmatic hernia without obstruction or gangrene; K57.30 Diverticulosis of large intestine without perforation or abscess without bleeding; R19.7 Diarrhea, unspecified; R63.0 Anorexia; R63.4 Abnormal weight loss; R15.2 Fecal urgency; Z95.5 Presence of coronary angioplasty implant and graft; Z86.718 Personal history of other venous thrombosis and embolism; Z87.891 Personal history of nicotine dependence; Z86.73 Personal history of transient ischemic attack (TIA), and cerebral infarction without residual deficits; Z79.899 Other long term (current) drug therapy
CPT/HCPCS: J2704; J7030